=== PATIENT | male | born 1995 | race Caucasian/White ===

== ENCOUNTER → 2018-01-06 09:38 | Outpatient (CLI) | payer OTHER, SELFPAY ==
[2018-01-06 11:02] LABS: Absolute Lymphocyte Count 1.43 X10^3/ul (0.83-4.51); Absolute Neutrophil Count 1.8 X10^3/uL (2.0-7.7); Basophil# 0.02 X10^3/uL; Basophil% 0.6 % (0-1); Eosinophil# 0.16 X10^3/uL; Eosinophils% 4.4 % (0-5); Hematocrit 40.1 % (40-54); Hemoglobin 13.4 g/dl (13.0-16.5); Lymphocyte # 1.43 X10^3/ul (4.0); Lymphocyte % 39.6 % (19-41); Mean Corp Hgb Conc 33.4 g/gl (32-36); Mean Corpuscular Hgb 30.4 pg (27.0-32.0); Mean Corpuscular Volume 90.9 fL (80-94); Mean Platelet Vol. 10.2 fl (6.2-12.0); Monocyte# 0.25 X10^3/uL; Monocyte% 6.9 % (0-10); Neutrophil # 1.75 X10^3/uL (2.7-7.7); Neutrophil % 48.5 % (47-70); Platelet Count 219 K/mm3 (150-450); RBC Distribution Width CV 13.2 % (11.6-14.6); RBC Distribution Width SD 43.7 fl (35.1-43.9); Red Blood Count 4.41 M/mm3 (4.6-6.2); White Blood Count 3.6 K/mm3 (4.4-11.0)
[2018-01-06 11:03] LABS: POSITIVE COUNT NO; POSITIVE DIFFERENTIAL NO; POSITIVE MORPHOLOGY NO
[2018-01-06 11:27] LABS: ALB/GLOB Ratio 1.2 RATIO (0.9-2.4); AST(SGOT) 11 U/L (15-37); Alanine Aminotransfer ALT/SGPT 23 U/L (16-61); Albumin, Serum 4.3 g/dL (3.2-5.0); Alkaline Phosphatase 92 U/L (45-117); Anion Gap 8 (5-15); BUN 13 mg/dL (7-18); Calcium,Total 9.4 mg/dL (8.5-10.1); Chloride 106 mmol/L (98-107); Creatinine, Serum 0.87 mg/dL (0.70-1.30); EST Glomerular Filtration Rate 115 mL/min (>60); Est Glom Filt Rate - Afr Amer 139 mL/min (>60); Globulin 3.6 g/dL (2.2-4.2); Glucose 74 mg/dL (74-106); Protein, Total 7.9 g/dL (6.4-8.2); Sodium Level 144 mmol/L (136-145)
== END ==
PROVIDERS: Family Provider Family Medicine; PCP Family Medicine; Referring Provider Family Medicine; Visit Provider Family Medicine
DX: G80.1 Spastic diplegic cerebral palsy (principal)
CPT/HCPCS: 36415; 80053; 85025

== ENCOUNTER → 2018-02-14 10:35 | Outpatient (CLI) | payer OTHER, SELFPAY ==
[2018-02-14 12:03] LABS: AST(SGOT) 10 U/L (15-37); Alanine Aminotransfer ALT/SGPT 22 U/L (16-61); Albumin, Serum 4.2 g/dL (3.2-5.0); Alkaline Phosphatase 91 U/L (45-117); Bilirubin, Direct 0.15 mg/dL (0.00-0.30); Globulin 3.6 g/dL (2.2-4.2); Protein, Total 7.8 g/dL (6.4-8.2)
== END ==
PROVIDERS: Family Provider Family Medicine; PCP Family Medicine; Referring Provider Nurse Practitioner Family; Visit Provider Nurse Practitioner Family
DX: B35.3 Tinea pedis (principal); B35.1 Tinea unguium
CPT/HCPCS: 36415; 80076

== ENCOUNTER 2018-04-05 12:15 | Outpatient (RCR) | payer OTHER, SELFPAY ==
--- NOTE | 2017-06-03 11:25 | MASS.EVAL ---
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 He was referred to the [facility] facility for massotherapy evaluation with the diagnosis of cerebral palsy by Dr Baum. He reports today with the symptoms of having leg and foot pain due to his medical condition. Objective: The first treatment consisted of a one hour massage to the full body. Upon observation I found that he had high tension in his head neck and shoulder area. He had knots along the medial borders of his scapulaes. I also found that his plantar muscles were very tight that also is causing tightness in his calf muscles. His cervical through lumbar paraspinals were very tight and ropy. Assessment: The patient seemed to easily relax and was able to tolerate deep pressure when needed. I was able to achieve a moderate release overall. Plan: The plan of care was reviewed with the patient and he is to be seen monthly for a total of ten 1-hour sessions for the year 2018. Nancy Dillard LMT
--- NOTE | 2017-06-03 11:33 | MASS.EVAL_ITS ---
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 He was referred to the [facility] facility for massotherapy evaluation with the diagnosis of cerebral palsy by Dr Baum. He reports today with the symptoms of having leg and foot pain due to his medical condition. Objective: The first treatment consisted of a one hour massage to the full body. Upon observation I found that he had high tension in his head neck and shoulder area. He had knots along the medial borders of his scapulaes. I also found that his plantar muscles were very tight that also is causing tightness in his calf muscles. His cervical through lumbar paraspinals were very tight and ropy. Assessment: The patient seemed to easily relax and was able to tolerate deep pressure when needed. I was able to achieve a moderate release overall. Plan: The plan of care was reviewed with the patient and he is to be seen monthly for a total of ten 1-hour sessions for the year 2018. Nancy Dillard LMT
--- NOTE | 2018-04-05 14:41 | DS.PCM_ITS ---
Massage Therapy Discharge Summary: Initial Evaluation: 06/01/2017 Diagnosis: Cerebal Palsy No. of Visits: Date of last visit: 04/05/2018 Goals: Promoted relaxation Decreased stress This patient is being discharged from our care at the [facility]. Thank you, Blaire Garcia LMT
== END 2018-04-06 08:14 | disposition home or self-care (01) ==
LOC: MASS 12:15
PROVIDERS: Family Provider Family Medicine; PCP Family Medicine; Visit Provider Family Medicine
DX: M79.1 Myalgia (principal); G80.9 Cerebral palsy, unspecified
CPT/HCPCS: 97124

== ENCOUNTER 2019-01-26 12:30 | Outpatient (RCR) | payer OTHER, MEDICARE, SELFPAY ==
--- NOTE | 2018-12-01 11:18 | HP.PTEVAL_ITS ---
Patient's Visit Information NEO VARELA is a 23 year old M referred to Physical Therapy by MARK QUEEN with a diagnosis of Congenital quadriplegia. Date of Evaluation: 12/01/18 Physical Therapist: Esvin Julio, SERENET, OCS, CSCS - Visit Plan Frequency: 3x /Week Duration: 4-6 Weeks Plan: 3x/week for 3-6 weeks for. 1. rollout and stretch SH aggressively and hip into external rotation, ensure compliance at home. Do this each visit for 20 minutes(we are trying to avoid leg immobilizer for surgery), then spend 10 mintues working on hip abd and ext strength adn ankle strength to HEP. - Subjective Findings: Needs PT to get surgery to straighten legs better. Stretches have been happening SKC and HS stretch, piriformis stretch, butterfly stretch, long sit stretch. Does them every other day and holding for 10 seconds max. Surgery may be cutting bone at ankle and rotating foot and HS lenghtening. if they can get the hS stretched out then they can do both just at the ankle. This will save him from full leg cast. Wants to do this in a month and needs to be stretched out. Has AFOs but not in them today. Usually has them on out and about. No pain. No AD to walk today but uses wh walker typically. Falls often if he tries to go too fast. Working at [employer] and [employer]. Sleeps like a rock. Bwoing , fishing, out with friends, watch sports. - Objective Walks into PT today without AD or AFOs, mildly unsteady with adducted femurs and externally rotated feet, knees stay flexed to about 20 degrees. Walks with short steps. Tranfers I with excessive use of arms. Spine stays flexed and can get to neutral ext. Patient has spasticity in IR of hips, HS, and adductors. Atrophied calves adn ankle musculature(rhizotmoy when he was little). Has a hard time moving ankles coordination torrez and 3-/5 strength jessy vailable ROM. 0 degrees DF, 22 eversion and 10 inversion passively. PF to 30. Knee AROM L -3 to 135 in supine and R -4 to 132, no pain with OP. Hip ROM to neutral ext 15 abd R adn 10 L and 125 flexion B.Adduction is pull. Strength hip abd 3-, ext 2+, adduction 4, flexion 4-. HS 90/90 test is - 50 L and -45 R. External rotation hips is 30 B with firm end feel and 90 IR easily. - Goals Goal 1:: -30 90/90 test at HS to limit need for HS lenghtening at surgery time. Goal Time Frame: 4-6 Weeks Goal 2:: Pt I in appropriate hip abd, ext and ankle strength and HS/er stretching for HEP Goal Time Frame: 4-6 Weeks - Rehabilitation Potential Physical Therapy Diagnosis: tone in LE affecting positioning and function of LE. Rehabilitation Potential: Questionable - Anticipated Interventions Patient/Client Instruction: Educate patient on: Condition, Plan of Care For the Purpose of:: To increase ROM, To improve muscle performance and motor function Therapeutic Exercise to Include: Strength training, Flexibilty training, Passive ROM, Active ROM For the Purpose of:: To increase ROM, To improve muscle performance and motor function, To increase tolerance to activity/condition/position, To improve ability of physical actions for home/community/work/leisure Thank you for the opportunity to evaluate your patient. For Medicare and Medicare HMO plans, please review the plan of care and approve it. It will need to be FAXED BACK to us at [phone] for Medicare purposes. For Medicare only, by signing this I certify the plan of care. Please let me know if there are questions or concerns regarding this plan of care. Physician Signature: Date:
--- NOTE | 2018-12-22 12:55 | HP.PTREVAL ---
MARK QUEEN, It has been my pleasure to treat NEO VARELA over the last 9 visits for Congenital quadriplegia. Please see the progress note below for an update on the physical therapy plan of care! Subjective: Hoping to just get R ankle done now with half leg cast according to dad. instead of two full leg calves. Cj feel stretches help him walk easier and further adn dad says that his legs do better. Doing band every morning and 3x10 throughout day. Bridging , stretching adn piriformis stretch daily. Also attempting ball HS curl. Objective/Function: -20 R HS adn -25 L 90/90 test. Much improved adn measured after stretching today. hip flexion strength 4-, knee ext 4- but overflows to htese muscles when attempting abd 3 adn ext 3 B. Positioning still tends to rotate in R>L and shoe wear R medial toe is excessive. Knees collapse together with functional stadning and walking unless cued verbally in standing. OVERALL BETTER ROM HS STILL WEAK HIPS . Plan Plan: 2X/WEEK FOR 4 WEEKS LEADING UP TO SURGERY TO ENSURE MAINTENANCE OF HS LENGTH WITH HEP AND PROGRESS AGRESSIVENESS OF LE STRENGTH ENSURING APPROPRIATE GYM EX TECHNIQUE AND PROGRESSING FUNCTIONAL STRENGTH OF HIPS AND KNEES WITH FEMUR IN NEUTRAL POSITION. Goals Goal 1:: -30 90/90 test at HS to limit need for HS lenghtening at surgery time. Goal Time Frame: 4-6 Weeks Goal Progress: Goal Met Goal 2:: Pt I in appropriate hip abd, ext and ankle strength and HS/er stretching for HEP Goal Time Frame: 4-6 Weeks Goal Progress: Goal Met Goal 3:: pt progress to functional strength LE I Goal Time Frame: 2-4 Weeks Goal Progress: new goal Goal 4:: Maintain -30 HS length on 90/90 test while stretching on his own. Goal Time Frame: 2-4 Weeks Goal Progress: NEW GOAL Goal 5:: stand with knees apart without VC needed. Goal Time Frame: 2-4 Weeks Goal Progress: New GOAL Anticipated Interventions Patient/Client Instruction: Educate patient on: Condition, Plan of Care For the Purpose of:: To increase ROM, To improve muscle performance and motor function Therapeutic Exercise to Include: Strength training, Flexibilty training, Passive ROM, Active ROM For the Purpose of:: To increase ROM, To improve muscle performance and motor function, To increase tolerance to activity/condition/position, To improve ability of physical actions for home/community/work/leisure Please do not hesitate to contact me at [phone] by phone or if you have questions or concerns regarding this new plan of care! Sincerely, Esvin Julio, DPT, OCS, CSCS
--- NOTE | 2019-01-26 13:25 | HP.PTDCSUM ---
HP - PT D/C Summary It has been my pleasure to treat NEO VARELA under orders from MARK QUEEN, for the diagnosis of Congenital quadriplegia for a total of 18 visit(s). Discharge Date: 01/26/19 Please see the following information for a summary of their discharge status. - Subjective Subjective: Presents with mom. Doing well and has been stretching. Sore from the machines. Having surgery osteotomy on Tuesday to R leg and should be discharged until sent back as he will be NWB - Overall Improvement % Improvement: 25 - Objective Objective/Function: -25 R 90/90 test adn -30 L 90/90 test. lag in B LSR. hip abd and ext still very weak and hard to hold femur in position. Walking with IR and add at both femurs and feet flat and R>L rotated out. - Goals Goal 1:: -30 90/90 test at HS to limit need for HS lenghtening at surgery time. Goal Progress: Goal Met Goal 2:: Pt I in appropriate hip abd, ext and ankle strength and HS/er stretching for HEP Goal Progress: Goal Met Goal 3:: pt progress to functional strength LE I Goal Progress: miles have surgery Goal 4:: Maintain -30 HS length on 90/90 test while stretching on his own. Goal Progress: near met Goal 5:: stand with knees apart without VC needed. Goal Progress: Not Progressing - Plan Plan: d/c for surgery. - D/C Information Discharge Comments: d/c as patient will have surgery. If there are questions or concerns regarding this patient's physical therapy, please feel free to call me at [phone]. Thank you for the referral of this patient. Sincerely, Esvin Julio, DPT, OCS, CSCS
== END 2019-01-26 19:00 | disposition home or self-care (01) ==
LOC: PT 12:30
PROVIDERS: Family Provider Family Medicine; PCP Family Medicine
DX: G80.8 Other cerebral palsy (principal); M21.6X9 Other acquired deformities of unspecified foot
CPT/HCPCS: 97110; 97140; 97162; 97530

== ENCOUNTER 2019-03-20 12:30 | Outpatient (RCR) | payer OTHER, SELFPAY ==
[2017-05-25 17:28] VITALS: BMI 21.7
--- NOTE | 2018-05-15 12:51 | MASS.EVAL ---
Massage Therapy Evaluation: Initial Evaluation Date: 05/10/2018 SUBJECTIVE: Cj is a 22 year old male who was referred to the [facility] facility for a massotherapy evaluation by Dr Harry with the diagnosis of cerebral palsy. Cj presents today with the symptoms of tension and pain in his neck and shoulders. He states that he also has a lot of leg tension and pain in both feet. OBJECTIVE: Upon observation and palpation I found Cj to have high muscle tension with tenderness and myofascial restrictions in his sub occipitals, levator scapulae, trapezius, rhomboids, scalenes, and thoracic paraspinals. His QL?s, lumbar paraspinals, glute medius and minimus,as well as his plantar muscles all were very tight with fascial restrictions, tender points and trigger points. The first treatment consisted of a one hour massage to his full body with myofascial release, muscle stripping, trigger point compression techniques, and cervical manual traction. ASSESSMENT: I feel that Cj is a good candidate for massotherapy at this time. He had a favorable response to the first treatment with reduction in his muscle aches, pain and tension. He also had improvement in his cervical flexibility and low back flexibility. PLAN: The plan of care was reviewed with the patient. The patient is to be seen on an as needed basis for a total of ten sessions with the recommendation of once every month for a one hour treatment.
== END 2019-03-20 19:00 | disposition home or self-care (01) ==
LOC: MASS 12:30
PROVIDERS: Family Provider Family Medicine; PCP Family Medicine; Referring Provider Family Medicine; Visit Provider Family Medicine
DX: M79.10 Myalgia, unspecified site (principal); G80.9 Cerebral palsy, unspecified
CPT/HCPCS: 97124

== ENCOUNTER 2019-05-08 14:00 | Outpatient (RCR) | payer OTHER, SELFPAY ==
--- NOTE | 2019-03-23 08:26 | HP.PTEVAL ---
Patient's Visit Information NEO VARELA is a 23 year old M referred to Physical Therapy by MARK QUEEN with a diagnosis of ER of foot, shortened achilles, S/P R foot recon, achilles lengthening. Date of Evaluation: 03/22/19 Physical Therapist: Isac Brush DPT - Visit Plan Frequency: 2x /Week Duration: 4-6 Weeks Plan: Start with achilles, HS, and adductor stretching. Add in ankle ROM both PROM and AROM. Progress to standing and walking once boot has been removed and cleared by physician. - Subjective Findings: Pt. is here today for his initial evaluation S/P R foot reconstructon and tendon lengthening procedure. Pt. is 4 weeks out of surgery. PMH: external rotation of foot, short achilles, congenital quadiplegia. Pt. reports no pain currently. He is doing some active ankle ROM and some standing in his boot. Pt. reports not walking much and is to refrain from increased walking currently. Pt. came today with sister who has been looking after him. 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 Pt. was previously walking without AD in household with furniture for stability and walker for longer distances. Pt. reports no difficulty getting out of bed. Pt. does have mild soreness with standing. No N/T. Pt. is in CAM boot and is to stay in until seeing doctor later this month. pt. is hopeful to get back to all walking, work and gym exercises without limitations. - Pain R foot Pain Intensity (Out of 10): 1 Pain Intensity Range: 0, 2 - Objective POSTURE: Pt. has flexed posture in sitting. Pt. is able to stand with FWW. Pt. had slight knee flexion during stance, slight plantar flexion as well. PALPATION: pt. has normal healing incison on foot. Pt. has no sighs of infection. NEURO: as expected. ROM: L foot: decreased DF 0deg. PF 28deg, INV/EVR 2-3 deg/ea. R foot: DF 6deg, PF 34deg. INV: 3deg EVR 6deg. HS length RLE- 48deg, LLE- 44deg. Adductor length- RLE 28deg, LLE- 30deg. MMT: Pt. has general 4/5 strength throughout BLEs. Pt. has fair core strength. STANDING: pt. completes txs independently. Pt. is able to stand with good posture. WALKING: Pt. is able to walk ~20 feet with FWW with SBA. Pt. had good posture to start, but degressed to more flexed posture. - Goals Goal 1:: Pt. to be I with HEP. Goal Time Frame: 4-6 Weeks Goal 2:: Pt. to have increased adductor, achilles, HS length inreased by 25% or RLE. Goal Time Frame: 4-6 Weeks Goal 3:: Pt. to stand with improved overall posture with full flat foot positoning. Goal Time Frame: 4-6 Weeks Goal 4:: Pt. to walk houshold distances with FWW with improved, safe gait pattern. Goal Time Frame: 4-6 Weeks Goal 5:: Pt. to resume gym exercises without limitations. Goal Time Frame: 4-6 Weeks - Rehabilitation Potential Physical Therapy Diagnosis: Pt. is S/P R foot recon, achilles tendon lengthening surgery. Pt. has subsequent hypombility, but improved. Pt. would benefit from achilles, adductor and HS stretching progressing to walking/standing. Rehabilitation Potential: Excellent - Anticipated Interventions Patient/Client Instruction: Educate patient on: Condition, Plan of Care, Risk Factors, Benefits of Fitness Program For the Purpose of:: To foster healthy habits, To improve decision making, To facilitate caregiver knowledge, To improve self management, To prevent re-injury, To improve ability to perform tasks related to life management, To improve tolerance to ADL's Therapeutic Exercise to Include: Strength training, Power training, Balance training, Postural training, Flexibilty training, Gait and locomotor training, Passive ROM, Active ROM For the Purpose of:: To decrease pain, To decrease swelling/inflammation, To increase ROM, To improve nutrient delivery to tissue, To increase oxygenation perfusion, To improve muscle performance and motor function, To improve ability to perform ADL's, To improve gait and locomotor functions, To decrease soft tissue restriction Manual Therapy Techniques to Include: Mobilization, Passive ROM, Soft tissue mobilization For the Purpose of:: To decrease pain, To increase ROM, To improve nutrient delivery to tissue, To increase oxygenation perfusion, To improve muscle performance and motor function Thank you for the opportunity to evaluate your patient. For Medicare and Medicare HMO plans, please review the plan of care and approve it. It will need to be FAXED BACK to us at [phone] for Medicare purposes. For Medicare only, by signing this I certify the plan of care. Please let me know if there are questions or concerns regarding this plan of care. Physician Signature: Date:
--- NOTE | 2019-04-24 14:46 | HP.PTREVAL_ITS ---
MARK QUEEN, It has been my pleasure to treat NEO VARELA over the last 8 visits for ER of foot, shortened achilles, S/P R foot recon, achilles lengthening. Please see the progress note below for an update on the physical therapy plan of care! Subjective: Pt. reports I am going to start working at [employer] on Tuesday. He reports doing well overall with increased standing tolerance Objective/Function: Pt. did well this date. Pt. is back to walking with new AFO on RLE, no redness noted this date. ROM: increased ROM of R ankle DF to 20deg. Hip abduction 45deg (tight end feel), HS length 60deg in supine (tight end feel noted). MMT: Pt. has 4/5 strength throughotu BLEs, except 3/5 hip abd and ER. Plan Plan: Start with achilles, HS, and adductor stretching. Add in ankle ROM both PROM and AROM. Add in strengthening of BLEs progressing to gym exercises as tolerated. Focus on proper techniques with knee positoning. Goals Goal 1:: Pt. to be I with HEP. Goal Time Frame: 4-6 Weeks Goal Progress: Progressing Goal 2:: Pt. to have increased adductor, achilles, HS length inreased by 25% or RLE. Goal Time Frame: 4-6 Weeks Goal Progress: Progressing Goal 3:: Pt. to stand with improved overall posture with full flat foot positoning. Goal Time Frame: 4-6 Weeks Goal Progress: Progressing Goal 4:: Pt. to walk houshold distances with FWW with improved, safe gait pattern. Goal Time Frame: 4-6 Weeks Goal Progress: Goal Met Goal 5:: Pt. to resume gym exercises without limitations. Goal Time Frame: 4-6 Weeks Goal Progress: Progressing Anticipated Interventions Patient/Client Instruction: Educate patient on: Condition, Plan of Care, Risk Factors, Benefits of Fitness Program For the Purpose of:: To foster healthy habits, To improve decision making, To facilitate caregiver knowledge, To improve self management, To prevent re- injury, To improve ability to perform tasks related to life management, To improve tolerance to ADL's Therapeutic Exercise to Include: Strength training, Power training, Balance training, Postural training, Flexibilty training, Gait and locomotor training, Passive ROM, Active ROM For the Purpose of:: To decrease pain, To decrease swelling/inflammation, To increase ROM, To improve nutrient delivery to tissue, To increase oxygenation perfusion, To improve muscle performance and motor function, To improve ability to perform ADL's, To improve gait and locomotor functions, To decrease soft tissue restriction Manual Therapy Techniques to Include: Mobilization, Passive ROM, Soft tissue mobilization For the Purpose of:: To decrease pain, To increase ROM, To improve nutrient delivery to tissue, To increase oxygenation perfusion, To improve muscle performance and motor function Please do not hesitate to contact me at [phone] by phone or if you have questions or concerns regarding this new plan of care! Sincerely, Isac Brush DPT
== END 2019-05-08 19:00 | disposition home or self-care (01) ==
LOC: PT 14:00
PROVIDERS: Family Provider Family Medicine; PCP Family Medicine
DX: M21.6X9 Other acquired deformities of unspecified foot (principal); M67.00 Short Achilles tendon (acquired), unspecified ankle; G80.8 Other cerebral palsy
CPT/HCPCS: 97110; 97161; 97164

== ENCOUNTER → 2019-10-01 09:23 | Outpatient (CLI) | payer OTHER, SELFPAY ==
[2019-07-11 10:54] VITALS: BMI 21.7
[2019-10-01 10:15] LABS: Absolute Lymphocyte Count 1.44 X10^3/uL (0.83-4.51); Basophil# 0.01 X10^3/uL; Basophil% 0.3 % (0-1); Eosinophil# 0.04 X10^3/uL; Eosinophils% 1.1 % (0-5); Hematocrit 40.4 % (40-54); Hemoglobin 13.3 g/dL (13.0-16.5); Lymphocyte # 1.44 X10^3/ul (4.0); Lymphocyte % 38.1 % (19-41); Mean Corp Hgb Conc 32.9 g/dL (32-36); Mean Corpuscular Hgb 29.6 pg (27.0-32.0); Mean Platelet Vol. 10.2 fl (6.2-12.0); Monocyte# 0.27 X10^3/uL; Monocyte% 7.1 % (0-10); NRBC Flagged by Analyzer 0 % (0-5); Neutrophil # 2.01 X10^3/uL (2.7-7.7); Neutrophil % 53.1 % (47-70); Platelet Count 237 K/mm3 (150-450); RBC Distribution Width CV 12.4 % (11.6-14.6); RBC Distribution Width SD 40.7 fl (35.1-43.9); Red Blood Count 4.49 M/mm3 (4.6-6.2); White Blood Count 3.8 K/mm3 (4.4-11.0)
[2019-10-01 10:45] LABS: ALB/GLOB Ratio 1.2 RATIO (0.9-2.4); AST(SGOT) 10 U/L (15-37); Alanine Aminotransfer ALT/SGPT 21 U/L (16-61); Albumin, Serum 4.4 g/dL (3.2-5.0); Alkaline Phosphatase 90 U/L (45-117); Anion Gap 4 (5-15); BUN 16 mg/dL (7-18); BUN/Creat Ratio 18.8 RATIO (10-20); Calcium,Total 9.5 mg/dL (8.5-10.1); Chloride 108 mmol/L (98-107); Creatinine, Serum 0.85 mg/dL (0.70-1.30); EST Glomerular Filtration Rate 116 mL/min (>60); Est Glom Filt Rate - Afr Amer 140 mL/min (>60); Globulin 3.8 g/dL (2.2-4.2); Glucose 94 mg/dL (74-106); Lipase 149 U/L (73-393); Potassium 3.9 mmol/L (3.5-5.1); Protein, Total 8.2 g/dL (6.4-8.2); Sodium Level 141 mmol/L (136-145)
== END ==
PROVIDERS: PCP Family Medicine; Referring Provider Family Medicine; Visit Provider Family Medicine
DX: R10.12 Left upper quadrant pain (principal); D72.819 Decreased white blood cell count, unspecified
CPT/HCPCS: 36415; 80053; 81001; 83690; 85025; 87086

== ENCOUNTER → 2019-10-02 11:57 | Outpatient (CLI) | payer OTHER, SELFPAY ==
[2019-07-11 10:54] VITALS: BMI 21.7
[2019-10-02 12:03] LABS: Bacteria 0 SEEN /hpf (None Seen); Red Blood Cells-Urine 0 SEEN /hpf (0-5); Squamous Epithelial Cells - UA 0 SEEN /hpf (0-5); White Blood Cells 0 SEEN /hpf (0-5)
[2019-10-02 12:31] LABS: Color, Urine Yellow (Yellow); Glucose, Dipstick Normal (Normal); Ketone-Dipstick Negative (Negative); Leukocyte Esterase-Dipstick Negative /ul (Negative); Nitrite-Dipstick Negative (Negative); Occult Blood-Urine Negative /ul (Negative); Protein-Dipstick Negative (Negative); Specific Gravity, Urine 1.015 (1.002-1.030); Urine Bilirubin Dipstick Negative (Negative); Urine Clarity Clear (Clear); Urine Urobilinogen Normal (Normal)
[2019-10-02 12:36] LABS: Mucous, Urine 1+ /hpf (<or=2+)
== END ==
PROVIDERS: PCP Family Medicine; Referring Provider Family Medicine; Visit Provider Family Medicine
DX: R10.12 Left upper quadrant pain (principal)
CPT/HCPCS: 81001; 87086

== ENCOUNTER → 2019-10-04 11:05 | Outpatient (CLI) | payer OTHER, SELFPAY ==
[2019-10-04 10:20] VITALS: BMI 22.9
== END ==
PROVIDERS: PCP Family Medicine; Referring Provider Physician Assistant; Visit Provider Physician Assistant
DX: Z20.828 Contact with and (suspected) exposure to other viral communicable diseases (principal); R68.83 Chills (without fever); R05 Cough; R11.0 Nausea
CPT/HCPCS: 87635; G2023; U0003

== ENCOUNTER → 2019-11-01 13:08 | Outpatient (CLI) | payer OTHER, SELFPAY ==
[2019-10-04 11:48] VITALS: BMI 21.7
[2019-11-01 15:05] LABS: Absolute Lymphocyte Count 2.16 X10^3/uL (0.83-4.51); Absolute Neutrophil Count 2.5 X10^3/uL (2.0-7.7); Basophil# 0.02 X10^3/uL; Basophil% 0.4 % (0-1); Eosinophil# 0.13 X10^3/uL; Eosinophils% 2.5 % (0-5); Hematocrit 40.3 % (40-54); Hemoglobin 13.1 g/dL (13.0-16.5); Lymphocyte # 2.16 X10^3/ul (4.0); Lymphocyte % 42.4 % (19-41); Mean Corp Hgb Conc 32.5 g/dL (32-36); Mean Corpuscular Hgb 29.6 pg (27.0-32.0); Mean Platelet Vol. 10.6 fl (6.2-12.0); Monocyte# 0.27 X10^3/uL; Monocyte% 5.3 % (0-10); NRBC Flagged by Analyzer 0 % (0-5); Neutrophil # 2.51 X10^3/uL (2.7-7.7); Neutrophil % 49.2 % (47-70); Platelet Count 265 K/mm3 (150-450); RBC Distribution Width CV 12.7 % (11.6-14.6); RBC Distribution Width SD 41.6 fl (35.1-43.9); Red Blood Count 4.43 M/mm3 (4.6-6.2); White Blood Count 5.1 K/mm3 (4.4-11.0)
[2019-11-01 15:25] LABS: ALB/GLOB Ratio 1.1 RATIO (0.9-2.4); AST(SGOT) 14 U/L (15-37); Alanine Aminotransfer ALT/SGPT 24 U/L (16-61); Albumin, Serum 4.2 g/dL (3.2-5.0); Alkaline Phosphatase 91 U/L (45-117); Anion Gap 3 (5-15); BUN 18 mg/dL (7-18); BUN/Creat Ratio 21.6 RATIO (10-20); Calcium,Total 9.6 mg/dL (8.5-10.1); Chloride 105 mmol/L (98-107); Creatinine, Serum 0.83 mg/dL (0.70-1.30); EST Glomerular Filtration Rate 118 mL/min (>60); Est Glom Filt Rate - Afr Amer 143 mL/min (>60); Globulin 3.9 g/dL (2.2-4.2); Glucose 114 mg/dL (74-106); Lipase 153 U/L (73-393); Potassium 3.8 mmol/L (3.5-5.1); Protein, Total 8.1 g/dL (6.4-8.2); Sodium Level 139 mmol/L (136-145)
== END ==
PROVIDERS: PCP Family Medicine; Referring Provider Family Medicine; Visit Provider Family Medicine
DX: D72.819 Decreased white blood cell count, unspecified (principal); R10.12 Left upper quadrant pain
CPT/HCPCS: 36415; 80053; 83690; 85025

== ENCOUNTER 2020-04-01 10:45 | Outpatient (RCR) | payer OTHER, SELFPAY ==
[2017-05-25 17:28] VITALS: BMI 21.7
--- NOTE | 2019-04-26 14:25 | MASS.EVAL ---
Massage Therapy Evaluation: Initial Evaluation Date: 04/26/2019 /Age: 0609/22/1995, 23 Diagnosis: CP, muscle spasms Goals: Decrease muscle pain and tension Plan: To be seen one time per month or PRN for a total of 10 treatments
--- NOTE | 2020-04-02 12:27 | DS.PCM_ITS ---
Massage Therapy Discharge Summary: Discharge Date: 04/02/2020 Estuardo was seen for a massotherapy evaluation on 04/26/2019 with the diagnosis of muscle pain and cerebral palsy. He was treated with eight sessions of massage therapy consisting of deep pressure soft tissue techniques, myofascial release and trigger point compression to his cervical, thoracic, lower back, lower extremities, feet and hips. Estuardo responded well to the therapy by reporting decreased tension and pain throughout his neck, shoulders, lower back and hips. His goals for therapy were met throughout the treatment sessions. At this time this patient is being discharged from our care at [facility] facility.
== END 2020-04-01 19:00 | disposition home or self-care (01) ==
LOC: MASS 10:45
PROVIDERS: Family Provider Family Medicine; PCP Family Medicine; Referring Provider Family Medicine; Visit Provider Family Medicine
DX: M79.10 Myalgia, unspecified site (principal); G80.9 Cerebral palsy, unspecified
CPT/HCPCS: 97124

== ENCOUNTER 2020-08-25 12:00 | Outpatient (RCR) | payer OTHER, SELFPAY ==
[2019-11-20 10:12] VITALS: BMI 21.7
--- NOTE | 2020-01-17 11:14 | HP.PTEVAL ---
Patient's Visit Information NEO VARELA is a 24 year old M referred to Physical Therapy by MARK QUEEN with a diagnosis of L foot surgery, tendon lengthening. Date of Evaluation: 01/15/20 Physical Therapist: Isac Brush DPT - Visit Plan Frequency: 2x /Week Duration: 4-6 Weeks Plan: Start with LLE stretching, hip, glute, quad strengthening. Once able to apply wt. through his LLE start initiating walking, and functional strengthening. Educate family on HEP for increased carry over. - Subjective Pt. is here today for his initial evaluation with diagnosis of of L foot surgery, tendon lengthening. Pt. reports having surgery ~6 weeks ago. Pt. was removed from cast ~ 1 week ago and is now in a CAM boot, but had to remove the boot as it was causing some redness along his navicular bone. Pt. is NWBing for another 10 days. Pt. denies N/T. He has been wearing his night splint as prescribed. Pt. reports no pain. Pt. is hopeful to get back to walking and working. Pt. does have a brace on his R leg, but has not recieved his L AFO at this point in time. 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 Pt. has been doing his exercises as prescribed. Pt. is hopeful to get back to all recreational and work activtiies without limitations. - Pain L foot Pain Intensity (Out of 10): 0 Pain Intensity Range: 0 - Objective POSTURE: Pt. has B knee valgus, he does have improved positioning. He still has some navicular drop bilaterally. PALPATION: Pt has normal healing incisions, no signs of infection. Pt. does have some redness at his navicular bone on his L leg, but per father this has been there since wearing the CAM boot, but is no longer wearing. NEURO: hypertone noted, 3+ patellar tendon bilaterally. ROM: LLE- ankle- DF- 25deg, PF 20deg, INV/EVR 5deg each direction. knee- 0-10-125deg. Tight HS and hip flexors noted bilaterally. hip- flexion- 120deg, ext- 0deg, abd 28deg. Pt. had marked tone with all mvoements of BLEs. MMT: LLE- ankle- DF 4/5, PF 4-/5; knee- ext 4/5, flexion 4-/5; hip- flexion 4-/5, abd 3-/5, ext- 4-/5. Core strength- fair-. GAIT: not measured today due to NWBing. - Goals Goal 1:: LTG: pt. to be I with HEP for LE strengthening and ROM. Goal Time Frame: 4-6 Weeks Goal 2:: STG: Pt. to initiate WBing on LLE and be able to walk I house hold distances without increase in symptoms. Goal Time Frame: 2-4 Weeks Goal 3:: LTG: Pt. to be I with gait for unlimited distances with proper WBing on LLE without increase in issues. Goal Time Frame: 4-6 Weeks Goal 4:: LTG: Pt. to resume all work related activities without increase in symptoms. Goal Time Frame: 4-6 Weeks Goal 5:: LTG: Pt. to maintain 25deg of L ankle DF. Goal Time Frame: 4-6 Weeks - Rehabilitation Potential Physical Therapy Diagnosis: Pt. has signs and symptoms consistent with L foot reconstruction, L foot surgery. Pt. is hypomobility, but improved, has difficulty walking and overall LE weakness. Pt. would benefit from PT to work on ROM, strengthening, gait with walker in order to progress functional gait/standing and progress back to work related acivities. Rehabilitation Potential: Excellent - Anticipated Interventions Patient/Client Instruction: Educate patient on: Condition, Plan of Care, Risk Factors, Benefits of Fitness Program For the Purpose of:: To facilitate caregiver knowledge, To improve self management, To prevent re-injury, To improve ability to perform tasks related to life management, To improve tolerance to ADL's Thank you for the opportunity to evaluate your patient. For Medicare and Medicare HMO plans, please review the plan of care and approve it. It will need to be FAXED BACK to us at [phone] for Medicare purposes. For Medicare only, by signing this I certify the plan of care. Please let me know if there are questions or concerns regarding this plan of care. Physician Signature: Date:
--- NOTE | 2020-02-29 14:49 | HP.PTREVAL ---
MARK QUEEN, It has been my pleasure to treat NEO VARELA over the last 12 visits for L foot surgery, tendon lengthening. Please see the progress note below for an update on the physical therapy plan of care! Subjective: No pain reported today. Pt. reports walking some at home, but not as much as I should. Objective/Function: Pt. did well with PT this date. Pt. is progressing with strength. He is able to ambulate with FWW for household distances. He is still weak throughout his BLEs, especially with hip abd, ER, quads, HS and glutes. MMT: knee ext 3+, HS 3+; hip abd 3-, hip ext 3+, hip ER 3+. GAIT: Pt. continues to have a crouched pattern, but does improve with VC/TCIng to increase TKE and reduce valgus positioning of his knees. Plan Plan: I would recommend that he continue with PT with focus on BLE strengthening, focusing on quad, glute strengthening to increase posture posture and improved control with gait. Goals Goal 1:: LTG: pt. to be I with HEP for LE strengthening and ROM. Goal Time Frame: 4-6 Weeks Goal Progress: Progressing Goal 2:: STG: Pt. to initiate WBing on LLE and be able to walk I house hold distances without increase in symptoms. Goal Time Frame: 2-4 Weeks Goal Progress: Progressing Goal 3:: LTG: Pt. to be I with gait for unlimited distances with proper WBing on LLE without increase in issues. Goal Time Frame: 4-6 Weeks Goal Progress: Progressing Goal 4:: LTG: Pt. to resume all work related activities without increase in symptoms. Goal Time Frame: 4-6 Weeks Goal Progress: Progressing Goal 5:: LTG: Pt. to maintain 25deg of L ankle DF. Goal Time Frame: 4-6 Weeks Goal Progress: Goal Met Anticipated Interventions Patient/Client Instruction: Educate patient on: Condition, Plan of Care, Risk Factors, Benefits of Fitness Program For the Purpose of:: To facilitate caregiver knowledge, To improve self management, To prevent re-injury, To improve ability to perform tasks related to life management, To improve tolerance to ADL's Please do not hesitate to contact me at [phone] by phone or if you have questions or concerns regarding this new plan of care! Sincerely, SERENE ChapmanT
--- NOTE | 2020-04-29 09:39 | HP.PTREVAL_ITS ---
MARK QUEEN, It has been my pleasure to treat NEO VARELA over the last 17 visits for L foot surgery, tendon lengthening. Please see the progress note below for an update on the physical therapy plan of care! Subjective: Pt. reports no new issues. He arrives walking with his K walker. He continues to require increased VCIng to increase his erect posture and to focus on increased WBing through his heels. No pain noted. Pt. reports being HEP compliant. Objective/Function: Pt. has improved strength throughout BLEs. RLE- hip- flexion 4/5, abd 3/5, ER 3/5; knee- ext 4+/5, flexion 4/5. LLE-hip- flexion 4/5, abd 3/5, ER 3/5; knee- ext 4+/5, flexion 4/5. Pt. has imrpoved posture with stance with walking. He has improved WBing through his full foot and decreased sway back, crouched posture. When he starts to walk this changes. He has increased difficulty with hip IR during full gait cycle and tends to have K walker very p osterior resulting in increased retro lean and crouched posture. He has improvement with increased VCing, but struggles to maintain throughout gait. He is able to walk 1000'+ but VCing to increase posture and foot placement/hip ER during stance phase of gait. He is back to work which will help him be more active as well. Plan Plan: I plan to continue with adelso with focus on hip, quad, and core strengthening and gaitr progression working on increased erect posture, better use/posture with walker. Goals Goal 1:: LTG: pt. to be I with HEP for LE strengthening and ROM. Goal Time Frame: 4-6 Weeks Goal Progress: Progressing Goal 2:: STG: Pt. to initiate WBing on LLE and be able to walk I house hold distances without increase in symptoms. Goal Time Frame: 2-4 Weeks Goal Progress: Progressing Goal 3:: LTG: Pt. to be I with gait for unlimited distances with proper WBing on LLE without increase in issues. Goal Time Frame: 4-6 Weeks Goal Progress: Progressing Goal 4:: LTG: Pt. to resume all work related activities without increase in symptoms. Goal Time Frame: 4-6 Weeks Goal Progress: Progressing Goal 5:: LTG: Pt. to maintain 25deg of L ankle DF. Goal Time Frame: 4-6 Weeks Goal Progress: Goal Met Anticipated Interventions Patient/Client Instruction: Educate patient on: Condition, Plan of Care, Risk Factors, Benefits of Fitness Program For the Purpose of:: To facilitate caregiver knowledge, To improve self management, To prevent re-injury, To improve ability to perform tasks related to life management, To improve tolerance to ADL's Please do not hesitate to contact me at [phone] by phone or if you have questions or concerns regarding this new plan of care! Sincerely, SERENE ChapmanT
--- NOTE | 2020-07-07 12:02 | HP.PTREVAL ---
MARK QUEEN, It has been my pleasure to treat NEO VARELA over the last 30 visits for L foot surgery, tendon lengthening. Please see the progress note below for an update on the physical therapy plan of care! Subjective: Pt. reports overall walking more at home. Pt. reports being HEP compliant with exercises, but has not been to gym due to COVID. Objective/Function: Pt. is progressing, but still requires VCing for proper erector posture. Pt. contines to have increasd knee valgus and hip IR during stance phase. Improves with increased use of UEs on walker. Erect ppsture improves with proper use of AD. Overall strength has improved, weakest at hip abd 3/5, abd hip ER 3/5. Plan Plan: Cont. with POC. Cont. to focus on gait progression, hip strengthening. Cue for gait with AD to increase erect posture and knee/foot positoning. Goals Goal 1:: LTG: pt. to be I with HEP for LE strengthening and ROM. Goal Time Frame: 4-6 Weeks Goal Progress: Progressing Goal 2:: STG: Pt. to initiate WBing on LLE and be able to walk I house hold distances without increase in symptoms. Goal Time Frame: 2-4 Weeks Goal Progress: Goal Met Goal 3:: LTG: Pt. to be I with gait for unlimited distances with proper WBing on LLE without increase in issues. Goal Time Frame: 4-6 Weeks Goal Progress: Progressing Goal 4:: LTG: Pt. to resume all work related activities without increase in symptoms. Goal Time Frame: 4-6 Weeks Goal Progress: Progressing Goal 5:: LTG: Pt. to maintain 25deg of L ankle DF. Goal Time Frame: 4-6 Weeks Goal Progress: Goal Met Goal 6:: LTG: Pt. to ambulate with increased erect posture and improved hip/knee alignment. Goal Time Frame: 4-6 Weeks Goal Progress: Progressing Anticipated Interventions Patient/Client Instruction: Educate patient on: Condition, Plan of Care, Risk Factors, Benefits of Fitness Program For the Purpose of:: To facilitate caregiver knowledge, To improve self management, To prevent re-injury, To improve ability to perform tasks related to life management, To improve tolerance to ADL's Please do not hesitate to contact me at [phone] by phone or if you have questions or concerns regarding this new plan of care! Sincerely, SERENE ChapmanT
--- NOTE | 2020-08-07 16:17 | HP.PTREVAL ---
MARK QUEEN, It has been my pleasure to treat NEO VARELA over the last 40 visits for L foot surgery, tendon lengthening. Please see the progress note below for an update on the physical therapy plan of care! Subjective: Pt. stated he is doing well today and has no pain, but did state that he feels sore after he sees PT. No new symptoms today. Objective/Function: Focused on gait training today without the patients AD as well as reassessed general muscle strength and ROM. Pt. seems to be progressing well and working on getting stronger. ROM: L ext -14 deg R ext -16 deg, B flex 124 deg, hip ext ~10 deg. MMT: hip flex 3/5, hip ext 3+/5, knee ext 5/5, knee flex 5/5, shoulder flex 5/5, shoulder abduction 5/5, shoulder extension 5/5 Plan Plan: Continue with POC. Continue to focus on gait progression and hip strengthening. Cueing done for gait with and without AD to increase erect posture and knee and foot positoning. Goals Goal 1:: LTG: pt. to be I with HEP for LE strengthening and ROM. Goal Time Frame: 4-6 Weeks Goal Progress: Goal Met Goal 2:: STG: Pt. to initiate WBing on LLE and be able to walk I house hold distances without increase in symptoms. Goal Time Frame: 2-4 Weeks Goal Progress: Goal Met Goal 3:: LTG: Pt. to be I with gait for unlimited distances with proper WBing on LLE without increase in issues. Goal Time Frame: 4-6 Weeks Goal Progress: Progressing Goal 4:: LTG: Pt. to resume all work related activities without increase in symptoms. Goal Time Frame: 4-6 Weeks Goal Progress: Goal Met Goal 5:: LTG: Pt. to maintain 25deg of L ankle DF. Goal Time Frame: 4-6 Weeks Goal Progress: Goal Met Goal 6:: LTG: Pt. to ambulate with increased erect posture and improved hip/knee alignment. Goal Time Frame: 4-6 Weeks Goal Progress: Progressing Anticipated Interventions Patient/Client Instruction: Educate patient on: Condition, Plan of Care, Risk Factors, Benefits of Fitness Program For the Purpose of:: To facilitate caregiver knowledge, To improve self management, To prevent re-injury, To improve ability to perform tasks related to life management, To improve tolerance to ADL's Please do not hesitate to contact me at [phone] by phone or if you have questions or concerns regarding this new plan of care! Sincerely, Isac Brush, SERENET
== END 2020-08-25 19:00 | disposition home or self-care (01) ==
LOC: PT 12:00
PROVIDERS: PCP Family Medicine
DX: M21.6X9 Other acquired deformities of unspecified foot (principal); M67.02 Short Achilles tendon (acquired), left ankle; G80.8 Other cerebral palsy
CPT/HCPCS: 97110; 97116; 97161; 97164; 97530

== ENCOUNTER 2020-09-04 09:15 | Outpatient (RCR) | payer OTHER, SELFPAY ==
[2019-11-20 10:12] VITALS: BMI 21.7
--- NOTE | 2020-04-17 15:35 | MASS.EVAL ---
Massage Therapy Evaluation: Initial Evaluation Date: 04/17/20 /Age: 0609/22/1995, 24 Diagnosis: Spastic Diplegic Cerebral Palsy Goals: Improve flexibility Relaxation Assessment: Cj is a good candidate for massage at this time. We have had success treating his symptoms in the past. Plan: To be seen one time per month or PRN for a total of 10 one hour sessions.
--- NOTE | 2021-03-23 17:28 | DS.PCM_ITS ---
Massage Therapy Discharge Summary: Initial Evaluation Date: 04/17/20 Diagnosis: Cerebral Palsy No. of Visits: 7 Date of last visit: 09/04/20 This patient is being discharged from our care at the [facility]. Thank you, Blaire Garcia LMT
== END 2020-09-04 19:00 | disposition home or self-care (01) ==
LOC: MASS 09:15
PROVIDERS: PCP Family Medicine; Referring Provider Family Medicine; Visit Provider Family Medicine
DX: G80.1 Spastic diplegic cerebral palsy (principal)
CPT/HCPCS: 97124

== ENCOUNTER → 2020-09-25 09:44 | Outpatient (CLI) | payer OTHER, SELFPAY ==
[2019-11-20 10:12] VITALS: BMI 21.7
[2020-09-25 10:10] LABS: Bacteria 0 SEEN /hpf (None Seen); Red Blood Cells-Urine 0 SEEN /hpf (0-5); Squamous Epithelial Cells - UA 0 SEEN /hpf (0-5)
[2020-09-25 12:19] LABS: Absolute Lymphocyte Count 1.58 X10^3/uL (0.83-4.51); Absolute Neutrophil Count 1.9 X10^3/uL (2.0-7.7); Basophil# 0.03 X10^3/uL; Basophil% 0.8 % (0-1); Eosinophil# 0.16 X10^3/uL; Eosinophils% 4.1 % (0-5); Hematocrit 40.9 % (40-54); Hemoglobin 13.4 g/dL (13.0-16.5); Lymphocyte # 1.58 X10^3/ul (0.83-4.51); Lymphocyte % 40.5 % (19-41); Mean Corp Hgb Conc 32.8 g/dL (32-36); Mean Corpuscular Hgb 29.6 pg (27.0-32.0); Mean Corpuscular Volume 90.5 fL (80-94); Mean Platelet Vol. 10.4 fl (6.2-12.0); Monocyte# 0.24 X10^3/uL; Monocyte% 6.2 % (0-10); NRBC Flagged by Analyzer 0 % (0-5); Neutrophil # 1.88 X10^3/uL (2.7-7.7); Neutrophil % 48.1 % (47-70); Platelet Count 237 K/mm3 (150-450); RBC Distribution Width CV 13.2 % (11.6-14.6); RBC Distribution Width SD 43.3 fl (35.1-43.9); Red Blood Count 4.52 M/mm3 (4.6-6.2); White Blood Count 3.9 K/mm3 (4.4-11.0)
[2020-09-25 12:22] LABS: Color, Urine Yellow (Yellow); Glucose, Dipstick Normal (Normal); Ketone-Dipstick Negative (Negative); Leukocyte Esterase-Dipstick Negative /ul (Negative); Nitrite-Dipstick Negative (Negative); Occult Blood-Urine Negative /ul (Negative); Protein-Dipstick Negative (Negative); Urine Bilirubin Dipstick Negative (Negative); Urine Clarity Clear (Clear); Urine Urobilinogen Normal (Normal)
[2020-09-25 12:30] LABS: Mucous, Urine 2+ /hpf (<or=2+); White Blood Cells 0-5 SEEN /hpf (0-5)
[2020-09-25 12:38] LABS: ALB/GLOB Ratio 1.1 RATIO (0.9-2.4); AST(SGOT) 15 U/L (15-37); Alanine Aminotransfer ALT/SGPT 25 U/L (16-61); Albumin, Serum 4.1 g/dL (3.2-5.0); Alkaline Phosphatase 91 U/L (45-117); Anion Gap 7 (5-15); BUN 19 mg/dL (7-18); BUN/Creat Ratio 20.7 RATIO (10-20); Calcium,Total 9.4 mg/dL (8.5-10.1); Chloride 106 mmol/L (98-107); Creatinine, Serum 0.92 mg/dL (0.70-1.30); EST Glomerular Filtration Rate 105 mL/min (>60); Est Glom Filt Rate - Afr Amer 127 mL/min (>60); Globulin 3.9 g/dL (2.2-4.2); Glucose 93 mg/dL (74-106); Lipase 121 U/L (73-393); Potassium 4.1 mmol/L (3.5-5.1); Sodium Level 140 mmol/L (136-145)
== END ==
PROVIDERS: PCP Family Medicine; Referring Provider Family Medicine; Visit Provider Family Medicine
DX: D72.819 Decreased white blood cell count, unspecified (principal)
CPT/HCPCS: 36415; 80053; 81001; 83690; 85025

== ENCOUNTER → 2020-11-03 13:08 | Outpatient (CLI) | payer OTHER, SELFPAY ==
[2019-11-20 10:12] VITALS: BMI 21.7
[2020-10-19 09:35] VITALS: BMI 20.7
[2020-11-03 15:13] LABS: Absolute Neutrophil Count 2.8 X10^3/uL (2.0-7.7); Basophil# 0.02 X10^3/uL; Basophil% 0.4 % (0-1); Eosinophil# 0.24 X10^3/uL; Eosinophils% 4.9 % (0-5); Hematocrit 39.3 % (40-54); Hemoglobin 12.9 g/dL (13.0-16.5); Lymphocyte % 26.7 % (19-41); Mean Corp Hgb Conc 32.8 g/dL (32-36); Mean Corpuscular Hgb 29.7 pg (27.0-32.0); Mean Corpuscular Volume 90.6 fL (80-94); Mean Platelet Vol. 10.5 fl (6.2-12.0); Monocyte# 0.51 X10^3/uL; Monocyte% 10.5 % (0-10); NRBC Flagged by Analyzer 0 % (0-5); Neutrophil # 2.79 X10^3/uL (2.7-7.7); Neutrophil % 57.3 % (47-70); Platelet Count 234 K/mm3 (150-450); RBC Distribution Width CV 12.8 % (11.6-14.6); RBC Distribution Width SD 42.2 fl (35.1-43.9); Red Blood Count 4.34 M/mm3 (4.6-6.2); White Blood Count 4.9 K/mm3 (4.4-11.0)
== END ==
PROVIDERS: PCP Family Medicine; Referring Provider Family Medicine; Visit Provider Family Medicine
DX: D72.819 Decreased white blood cell count, unspecified (principal)
CPT/HCPCS: 36415; 85025

== ENCOUNTER 2020-11-06 09:00 | Outpatient (RCR) | payer OTHER, SELFPAY ==
[2019-11-20 10:12] VITALS: BMI 21.7
--- NOTE | 2020-11-06 12:56 | HP.PT.NRP ---
NEO VARELA was seen in my office for initial evaluation on 08/28/20. The following Plan of Care was established for this patient: Patient/Client Instruction: Educate patient on: Condition, Plan of Care, Risk Factors, Benefits of Fitness Program For the Purpose of:: To improve self management, To improve ability to perform tasks related to life management, To improve tolerance to ADL's Therapeutic Exercise to Include: Strength training, Power training, Endurance training, Balance training, Body mechanics, Postural training For the Purpose of:: To improve nutrient delivery to tissue, To increase oxygenation perfusion, To improve muscle performance and motor function, To improve ability to perform ADL's, To increase tolerance to activity/condition/position, To improve ability of physical actions for home/community/work/leisure, To improve gait and locomotor functions, To improve health of tissue, To decrease soft tissue restriction, To increase flexibility/ROM, To improve safety with gait, To improve safety This patient was last seen in our office 11/06/20. Pertinent comments regarding their Physical therapy will appear below: Pt. will be DC from PT this date. Pt. progressed well with PT. He still has some spasticity and difficulty with walking without AD. He is EUNICE with K walker. Pt. does still have B knee valgus with B hip IR during stance phases. He has marked weakness at glute medius. He will be DC from PT this date with changes in insurance. Pt. will be DC to HEP this date. At this point I will be discontinuing this patient from physical therapy. I would be happy to see this patient again in the future if found appropriate by the physician. Thank you! Isac Brush, SERENET
== END 2020-11-06 14:44 | disposition home or self-care (01) ==
LOC: PT 09:00
PROVIDERS: PCP Family Medicine; Visit Provider Family Medicine
DX: M21.6X9 Other acquired deformities of unspecified foot (principal); M67.02 Short Achilles tendon (acquired), left ankle; G80.8 Other cerebral palsy
CPT/HCPCS: 97110; 97530

== ENCOUNTER 2021-06-17 11:30 | Outpatient (RCR) | payer MEDICARE, MEDICAID, SELFPAY ==
[2020-10-19 09:35] VITALS: BMI 20.7
--- NOTE | 2020-11-21 08:40 | HP.PTEVAL_ITS ---
Patient's Visit Information NEO VARELA is a 25 year old M referred to Physical Therapy by MARK QUEEN with a diagnosis of Congenital diplegia. Date of Evaluation: 11/13/20 Physical Therapist: Isac Brush DPT - Visit Plan Frequency: 2x /Week Duration: 6 Weeks Plan: Start with BLE strengthening, continue to progress LE stretching program. Add in gait mechanics with focus on improved posture with good knee/hip positioning. Educate importance of walking program and consistency with exercises. - Subjective Pt. is here today for his initial evaluation with diagnosis of congenital diplegia. Pt. arrives with his K walker EUNICE. He denies pain. No N/T in either LE. PT. reports overall doing well, but is hopeful to get back to more gym exercises as he did ~1 year ago. He used to do a lot of UE and LE strengthening. He did have foot reconstruction earlier this year and had the other foot doing the year prior. Pt. wears bilat AFOs with out complaints. Pt. is reports that his main goal is to walk independently at his sisters wedding next month. He would also like to get stronger and get back to the gym. He denies falls, no injuries noted. Pt. also goes to rec center in the day, but is not doing gym exercises there due to COVID restraints. Pt. reports wanting to walk with decreased hip ER/valgus positioning to increase stability in order to ambulate without AD. - Objective POSTURE: Pt. has slight flexed posture with standing with K walker. He has increased B hip IR and retro lean to apply pressure through K walker. Increased erect posture with VCing. Difficulty with correcting B hip positioning. Pt. has increased crouched posture without AD. PALPATION: No pain or issues with palpation of LEs. Tight musculature noted at B hamstrings with stretching. NEURO: Pt. has increased hyper reflexivity in B patellar DTR. pt. has marked tone in B HS. ROM: RLE: ankle 20deg DF, Knee: flexion full, ext lacking 38deg, hip full motion, except 3deg ext, abd 25deg, ER 40deg. LLE: ankle DF 22deg; knee- flexion full, ext lacking 40deg; hip flexion full, abd 29deg, ext 10deg, ER 33deg. MMT: RLE: knee: ext 4+/5, flexion 4/5; hip- flexion 4/5, abd 3-/5, ext 5/5, add 5/5, ER 3-/5, IR 5/5. LLE: knee: ext 4+/5, flexion 4/5; hip- flexion 4/5, abd 3-/5, ext 5/5, add 5/5, ER 3-/5, IR 5/5. Trunk flexion 5/5, trunk ext 4/5. GAIT: Pt ambulates with K walker with B hip IR and retro lean onto UE on K walker. He is able to improve his posture and BLE positioning with attention to this and with VCing, but difficulty to maintain. He is able to ambulate without AD, but has again an increased crouched pattern and increased hip adduction and IR positioning. 6MWT: 854 feet with K walker. TUG with K walker: 29.8sec. TUG without AD 15.9 sec. - Goals Goal 1:: LTG: pt. to be I with HEP for BLE strengthening and core strengthening. Goal Time Frame: 4-6 Weeks Goal 2:: LTG: Pt. to increased BLE ROM including HS, hip adductors and external rotation. 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 Goal Time Frame: 2-4 Weeks Goal 4:: LTG: Pt. to have increased distances with 6 MWT to 1200'+ with K walker. Goal Time Frame: 4-6 Weeks Goal 5:: LTG: Pt. to have increased TUG score without AD to 10sec and with AD to 20sec. Goal Time Frame: 4-6 Weeks - Rehabilitation Potential Physical Therapy Diagnosis: Pt. has signs and symptoms consistent with congenital diplegia. Pt. has subsequent B LE weakness, hypomobility, spasticity and difficulty with walking. Pt. would benefit from PT to address the above limitation progressing overall general mobility with improved safety and posture. Rehabilitation Potential: Good - Anticipated Interventions Patient/Client Instruction: Educate patient on: Condition, Plan of Care, Risk Factors, Benefits of Fitness Program For the Purpose of:: To improve health and function, To foster healthy habits, To improve decision making, To facilitate caregiver knowledge, To improve self management, To prevent re-injury, To improve ability to perform tasks related to life management Therapeutic Exercise to Include: Strength training, Power training, Endurance training, Postural training, Flexibilty training, Passive ROM, Active ROM For the Purpose of:: To increase ROM, To improve nutrient delivery to tissue, To increase oxygenation perfusion, To improve muscle performance and motor function, To improve ability to perform ADL's, To increase tolerance to activity/condition/position, To improve ability of physical actions for ho me/community/work/leisure, To improve gait and locomotor functions, To improve health of tissue, To decrease soft tissue restriction, To increase flexibility/ROM, To improve endurance, To improve balance, To improve safety with gait Thank you for the opportunity to evaluate your patient. For Medicare and Medicare HMO plans, please review the plan of care and approve it. It will need to be FAXED BACK to us at [phone] for Medicare purposes. For Medicare only, by signing this I certify the plan of care. Please let me know if there are questions or concerns regarding this plan of care. Physician Signature: Date:
--- NOTE | 2020-12-22 13:39 | HP.PTREVAL_ITS ---
MARK QUEEN, It has been my pleasure to treat NEO VARELA over the last 8 visits for Congenital diplegia. Please see the progress note below for an update on the physical therapy plan of care! Subjective: Pt. reports no pain today. He is walking well with K walker. Pt. reports doing gym exercises x2 per week. Objective/Function: ROM: Pt. has good ROM of B hips, except tight into ER and ER motions, ER to 30deg bilat and Ext to 5 deg bilat. PT. has B hamstring tightness limiting SH length to 40deg in 90/90 positioning. TU.75sec with out AD, 29.93sec with K walker EUNICE. 6 MWT: 1037' with K walker. He does present with continued B hip IR and crouched positioning. Improves wtih FWW, but does fall back into poor positioning with increased walking. Plan Plan: Pt. is progressing, but slowly with strengthening and gait progression. He is walking further with overall improved stability, but regresses into poor postures without VCing. Cont. to progress BLE and core strengthening, gait stability, postural control and stability. Balance/Gait/Functional tests - Balance/Special Test Scores Lower Extremity Functional Score: 46 Goals Goal 1:: LTG: pt. to be I with HEP for BLE strengthening and core strengthening. Goal Time Frame: 4-6 Weeks Goal Progress: Progressing Goal 2:: LTG: Pt. to increased BLE ROM including HS, hip adductors and external rotation. 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 Goal Time Frame: 2-4 Weeks Goal Progress: Progressing Goal 4:: LTG: Pt. to have increased distances with 6 MWT to 1200'+ with K walker. Goal Time Frame: 4-6 Weeks Goal Progress: Progressing Goal 5:: LTG: Pt. to have increased TUG score without AD to 10sec and with AD to 20sec. Goal Time Frame: 4-6 Weeks Goal Progress: Progressing Anticipated Interventions Patient/Client Instruction: Educate patient on: Condition, Plan of Care, Risk Factors, Benefits of Fitness Program For the Purpose of:: To improve health and function, To foster healthy habits, To improve decision making, To facilitate caregiver knowledge, To improve self management, To prevent re-injury, To improve ability to perform tasks related to life management Therapeutic Exercise to Include: Strength training, Power training, Endurance training, Postural training, Flexibilty training, Passive ROM, Active ROM For the Purpose of:: To increase ROM, To improve nutrient delivery to tissue, To increase oxygenation perfusion, To improve muscle performance and motor function, To improve ability to perform ADL's, To increase tolerance to activity/condition/position, To improve ability of physical actions for home/community/work/leisure, To improve gait and locomotor functions, To improve health of tissue, To decrease soft tissue restriction, To increase flexibility/ROM, To improve endurance, To improve balance, To improve safety with gait Please do not hesitate to contact me at [phone] by phone or if you have questions or concerns regarding this new plan of care! Sincerely, SERENE ChapmanT
--- NOTE | 2021-02-26 11:41 | HP.PTREVAL ---
MARK QUEEN, It has been my pleasure to treat NEO VARELA over the last 22 visits for Congenital diplegia. Please see the progress note below for an update on the physical therapy plan of care! Subjective: Pt reports his Left shoulder has been bothering him, he believes he might have slept wrong. Objective/Function: STRENGTH: RIGHT hip flexor 4, IR 3+, ER 3+,knee flexors 3+, extensors 5 ; LEFT RIGHT hip flexor 4, IR 3+, ER 3+,knee flexors 3+, extensors 5. gait: continues to walk with K walker. Pt. has increased B LE knee valgus, improves with VCing. STAIRS: Pt. is able to complete with 2 HR with reciprocal pattern. Pt. requires increased time to descend. Pt still limited in hamstring length, and continues to ambulate with significant hip IR and adduction. Pt still progressing to meet goals. Plan Plan: Continue strengthening exercises consider focusing on hip ER's. Balance/Gait/Functional tests - Balance/Special Test Scores Lower Extremity Functional Score: 51 TUG Test Time Seconds: 22 Tug Test: 20-30sec.=variable mobility Goals Goal 1:: LTG: pt. to be I with HEP for BLE strengthening and core strengthening. Goal Time Frame: 4-6 Weeks Goal Progress: Progressing Goal 2:: LTG: Pt. to increased BLE ROM including HS, hip adductors and external rotation. 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 Goal Time Frame: 2-4 Weeks Goal Progress: Progressing Goal 4:: LTG: Pt. to have increased distances with 6 MWT to 1200'+ with K walker. Goal Time Frame: 4-6 Weeks Goal Progress: Progressing Goal 5:: LTG: Pt. to have increased TUG score without AD to 10sec and with AD to 20sec. Goal Time Frame: 4-6 Weeks Goal Progress: Progressing Anticipated Interventions Patient/Client Instruction: Educate patient on: Condition, Plan of Care, Risk Factors, Benefits of Fitness Program For the Purpose of:: To improve health and function, To foster healthy habits, To improve decision making, To facilitate caregiver knowledge, To improve self management, To prevent re-injury, To improve ability to perform tasks related to life management Therapeutic Exercise to Include: Strength training, Power training, Endurance training, Postural training, Flexibilty training, Passive ROM, Active ROM For the Purpose of:: To increase ROM, To improve nutrient delivery to tissue, To increase oxygenation perfusion, To improve muscle performance and motor function, To improve ability to perform ADL's, To increase tolerance to activity/condition/position, To improve ability of physical actions for home/community/work/leisure, To improve gait and locomotor functions, To improve health of tissue, To decrease soft tissue restriction, To increase flexibility/ROM, To improve endurance, To improve balance, To improve safety with gait Please do not hesitate to contact me at [phone] by phone or if you have questions or concerns regarding this new plan of care! Sincerely, Isac Brush DPT
--- NOTE | 2021-04-13 17:56 | HP.PTREVAL_ITS ---
MARK QUEEN, It has been my pleasure to treat NEO VARELA over the last 32 visits for Congenital diplegia. Please see the progress note below for an update on the physical therapy plan of care! Subjective: Pt. reports overall doing okay. He reports no pain currently. Pt. reports doing gym exercises x2 days per week. He walked back with K walker with proper safety, but continues to presents with increased B knee valgus. No pain pre treatment. Objective/Function: ROM: Pt. has good ankle and knee ROM. tightness into ex tension. Pt. has very tight HS and quads. He has marked weakness in B hip abductors, ER and HS. I would like him to over train his glutes and HS in attempt to increase hip abductor activation. He is able to ambulate with improved upright posture with decreased B knee valgus, but not completely. He does tend to fall back into this poor posture if he does not focus on gait mechanics. I had him working on [employer] with PT support for balance today in order to engage his HS more to increase upright posture. Plan Plan: I would like him to continue with PT with focus on BLE strengthening (focus on glute med, glute max, hip ER strengthening). Gait control as well. Balance/Gait/Functional tests - Balance/Special Test Scores Lower Extremity Functional Score: 51 TUG Test Time Seconds: 22 Tug Test: 20-30sec.=variable mobility Goals Goal 1:: LTG: pt. to be I with HEP for BLE strengthening and core strengthening. Goal Time Frame: 4-6 Weeks Goal Progress: Progressing Goal 2:: LTG: Pt. to increased BLE ROM including HS, hip adductors and external rotation. 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 Goal Time Frame: 2-4 Weeks Goal Progress: Progressing Goal 4:: LTG: Pt. to have increased distances with 6 MWT to 1200'+ with K walker. Goal Time Frame: 4-6 Weeks Goal Progress: Progressing Goal 5:: LTG: Pt. to have increased TUG score without AD to 10sec and with AD to 20sec. Goal Time Frame: 4-6 Weeks Goal Progress: Progressing Anticipated Interventions Patient/Client Instruction: Educate patient on: Condition, Plan of Care, Risk Factors, Benefits of Fitness Program For the Purpose of:: To improve health and function, To foster healthy habits, To improve decision making, To facilitate caregiver knowledge, To improve self management, To prevent re-injury, To improve ability to perform tasks related to life management Therapeutic Exercise to Include: Strength training, Power training, Endurance training, Postural training, Flexibilty training, Passive ROM, Active ROM For the Purpose of:: To increase ROM, To improve nutrient delivery to tissue, To increase oxygenation perfusion, To improve muscle performance and motor function, To improve ability to perform ADL's, To increase tolerance to act ivity/condition/position, To improve ability of physical actions for home/community/work/leisure, To improve gait and locomotor functions, To improve health of tissue, To decrease soft tissue restriction, To increase flexibility/ROM, To improve endurance, To improve balance, To improve safety with gait Please do not hesitate to contact me at [phone] by phone or if you have questions or concerns regarding this new plan of care! Sincerely, Isac Brush DPT
--- NOTE | 2021-05-07 12:55 | HP.PTREVAL_ITS ---
MARK QUEEN, It has been my pleasure to treat NEO VARELA over the last 37 visits for Congenital diplegia. Please see the progress note below for an update on the physical therapy plan of care! Subjective: Pt. reports no new issues. Pt. arrives today walking with with k walker. Pt. reports being HEP compliant. No pain reported today. Objective/Function: Pt. as expected is tight in HS and hip flexors. He has marked weakness with his hip ER, abductors and hip stability. He braces with his adductors in stance. He has improved, slightly, with knee positioning in stance, but does revert to valgus/adducted posture without constant VCing. Pt. is doing a gym routine ~2 per week. He has been doing leg press/nustep/hip abduction machine. I talked to him about adding HS curl, knee extension. I also had him working on standing upright against a wall (facing) working on improvign posture and quad activation to keep LEs into TKE. Difficult for him to do. 6 MWT: 982' with k walker. TU.1 sec without AD (high guard posture). K walker 21.7sec difficulty with directional change. Plan Plan: Cont. with POC. Work on glute strength, quad strength, glute Medius, hip ER. Progress gym exercises. Add in standing time with focus on glute/quad activation for longer periods of time. Cont. to educate proper gait pattern for both knee positioning and hip extension. Balance/Gait/Functional tests - Balance/Special Test Scores Lower Extremity Functional Score: 53 TUG Test Time Seconds: 22 Tug Test: 20-30sec.=variable mobility Goals Goal 1:: LTG: pt. to be I with HEP for BLE strengthening and core strengthening. Goal Time Frame: 4-6 Weeks Goal Progress: Progressing Goal 2:: LTG: Pt. to increased BLE ROM including HS, hip adductors and external rotation. 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 Goal Time Frame: 2-4 Weeks Goal Progress: Progressing Goal 4:: LTG: Pt. to have increased distances with 6 MWT to 1200'+ with K walker. Goal Time Frame: 4-6 Weeks Goal Progress: Progressing Goal 5:: LTG: Pt. to have increased TUG score without AD to 10sec and with AD to 20sec. Goal Time Frame: 4-6 Weeks Goal Progress: Progressing Anticipated Interventions Patient/Client Instruction: Educate patient on: Condition, Plan of Care, Risk Factors, Benefits of Fitness Program For the Purpose of:: To improve health and function, To foster healthy habits, To improve decision making, To facilitate caregiver knowledge, To improve self management, To prevent re-injury, To improve ability to perform tasks related to life management Therapeutic Exercise to Include: Strength training, Power training, Endurance training, Postural training, Flexibilty training, Passive ROM, Active ROM For the Purpose of:: To increase ROM, To improve nutrient delivery to tissue, To increase oxygenation perfusion, To improve muscle performance and motor function, To improve ability to perform ADL's, To increase tolerance to activity/condition/position, To improve ability of physical actions for home/community/work/leisure, To improve gait and locomotor functions, To improve health of tissue, To decrease soft tissue restriction, To increase flexibilit y/ROM, To improve endurance, To improve balance, To improve safety with gait Please do not hesitate to contact me at [phone] by phone or if you have questions or concerns regarding this new plan of care! Sincerely, Isac Brush DPT
--- NOTE | 2021-06-29 08:40 | HP.PTREVAL ---
MARK QUEEN, It has been my pleasure to treat NEO VARELA over the last 44 visits for Congenital diplegia. Please see the progress note below for an update on the physical therapy plan of care! Subjective: Pt. reports overall doing well. He arrives with his K walker with good/safe use. He reports he has been working without issues. Still needs his walker to tolerate standing for longer periods due to fatigue and balance issues. Pt. reports no pain pre treatment today. Objective/Function: ROM: Pt. has decent ROM, but continues to have tight B hamstrings and limited hip extension. Pt. is stretching and is I with his stretching routine. MMT: Pt. has decent BLE strength, except very weak hip abductors and external rotators noted. 3-/5 bilaterally with each muscle group. Pt. had good core strength and good glute strength. GAIT: Pt. ambulates safely with K walker, but does have marked hip IR and adducted positions. Does improve with VC/TCing to increase erect posture. Fatigues fast with increased walking. With out K walker, patient has increased adducted IR positioning with crouched posture. He is not as safe without AD, but is able to complete, tends to furniture cruise. TUG: with walker 27sec, without AD 18sec, but requires CGA without AD. 6 MWT: Pt. ambulated with K walker. 973 feet. Frequent VCing to keep K walker closer and to increase proper posture throughout. He is improving with tempo with gait and his stability, but continues to have adducted and IR positioning frequently with gait. this seems to be unchanging. I will ask for more visit with focus on endruance with gait and stability with walker in order to improve TUG and 6 MWT. Plan Plan: Asking for more visits for patient. Balance/Gait/Functional tests - Balance/Special Test Scores Lower Extremity Functional Score: 53 TUG Test Time Seconds: 22 Tug Test: 20-30sec.=variable mobility Goals Goal 1:: LTG: pt. to be I with HEP for BLE strengthening and core strengthening. Goal Time Frame: 4-6 Weeks Goal Progress: Goal Met Goal 2:: LTG: Pt. to increased BLE ROM including HS, hip adductors and external rotation. Goal Time Frame: 4-6 Weeks Goal Progress: Progressing Goal 3:: STG: Pt. 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 Goal Time Frame: 2-4 Weeks Goal Progress: Progressing Goal 4:: LTG: Pt. to have increased distances with 6 MWT to 1200'+ with K walker. Goal Time Frame: 4-6 Weeks Goal Progress: Progressing Goal 5:: LTG: Pt. to have increased TUG score without AD to 10sec and with AD to 20sec. Goal Time Frame: 4-6 Weeks Goal Progress: Progressing Anticipated Interventions Patient/Client Instruction: Educate patient on: Condition, Plan of Care, Risk Factors, Benefits of Fitness Program For the Purpose of:: To improve health and function, To foster healthy habits, To improve decision making, To facilitate caregiver knowledge, To improve self management, To prevent re-injury, To improve ability to perform tasks related to life management Therapeutic Exercise to Include: Strength training, Power training, Endurance training, Postural training, Flexibilty training, Passive ROM, Active ROM For the Purpose of:: To increase ROM, To improve nutrient delivery to tissue, To increase oxygenation perfusion, To improve muscle performance and motor function, To improve ability to perform ADL's, To increase tolerance to activity/condition/position, To improve ability of physical actions for home/community/work/leisure, To improve gait and locomotor functions, To improve health of tissue, To decrease soft tissue restriction, To increase flexibility/ROM, To improve endurance, To improve balance, To improve safety with gait Please do not hesitate to contact me at [phone] by phone or if you have questions or concerns regarding this new plan of care! Sincerely, Isac Brush DPT
== END 2021-06-17 19:00 | disposition home or self-care (01) ==
LOC: PT 11:30
PROVIDERS: PCP Family Medicine
DX: G80.8 Other cerebral palsy (principal)
CPT/HCPCS: 97110; 97161; 97164; 97530

== ENCOUNTER → 2021-09-29 | Outpatient (CLI) | payer MEDICARE, MEDICAID, SELFPAY ==
[2021-09-29 09:52] LABS: Absolute Lymphocyte Count 1.81 X10^3/uL (0.83-4.51); Basophil# 0.02 X10^3/uL; Basophil% 0.5 % (0-1); Eosinophil# 0.18 X10^3/uL; Eosinophils% 4.1 % (0-5); Hematocrit 38.4 % (40-54); Hemoglobin 12.8 g/dL (13.0-16.5); Lymphocyte # 1.81 X10^3/ul (0.83-4.51); Lymphocyte % 41.6 % (19-41); Mean Corp Hgb Conc 33.3 g/dL (32-36); Mean Corpuscular Hgb 29.6 pg (27.0-32.0); Mean Corpuscular Volume 88.7 fL (80-94); Mean Platelet Vol. 10.3 fl (6.2-12.0); Monocyte# 0.32 X10^3/uL; Monocyte% 7.4 % (0-10); NRBC Flagged by Analyzer 0 % (0-5); Neutrophil % 45.9 % (47-70); Platelet Count 236 K/mm3 (150-450); RBC Distribution Width CV 12.8 % (11.6-14.6); RBC Distribution Width SD 41.7 fl (35.1-43.9); Red Blood Count 4.33 M/mm3 (4.6-6.2); White Blood Count 4.4 K/mm3 (4.4-11.0)
[2021-09-29 10:24] LABS: ALB/GLOB Ratio 1.1 RATIO (0.9-2.4); AST(SGOT) 13 U/L (15-37); Alanine Aminotransfer ALT/SGPT 27 U/L (16-61); Alkaline Phosphatase 86 U/L (45-117); Anion Gap 8 (5-15); BUN 18 mg/dL (7-18); BUN/Creat Ratio 20.1 RATIO (10-20); Calcium,Total 9.6 mg/dL (8.5-10.1); Chloride 103 mmol/L (98-107); Creatinine, Serum 0.89 mg/dL (0.70-1.30); EST Glomerular Filtration Rate 108 mL/min (>60); Est Glom Filt Rate - Afr Amer 130 mL/min (>60); Globulin 3.7 g/dL (2.2-4.2); Glucose 91 mg/dL (74-106); Potassium 3.6 mmol/L (3.5-5.1); Protein, Total 7.7 g/dL (6.4-8.2); Sodium Level 140 mmol/L (136-145)
== END | disposition home or self-care (01) ==
LOC: MTLAB 08:09
PROVIDERS: PCP Family Medicine; Referring Provider Family Medicine; Visit Provider Family Medicine
DX: Z13.220 Encounter for screening for lipoid disorders (principal); G80.8 Other cerebral palsy
CPT/HCPCS: 36415; 80053; 85025

== ENCOUNTER → 2021-10-08 | Outpatient (CLI) | payer MEDICARE, MEDICAID, SELFPAY ==
[2021-10-08 12:42] LABS: Absolute Lymphocyte Count 1.56 X10^3/uL (0.83-4.51); Absolute Neutrophil Count 1.8 X10^3/uL (2.0-7.7); Basophil# 0.03 X10^3/uL; Basophil% 0.8 % (0-1); Eosinophil# 0.14 X10^3/uL; Eosinophils% 3.7 % (0-5); Hemoglobin 12.2 g/dL (13.0-16.5); Lymphocyte # 1.56 X10^3/ul (0.83-4.51); Lymphocyte % 41.1 % (19-41); Mean Corpuscular Hgb 29.7 pg (27.0-32.0); Mean Platelet Vol. 10.4 fl (6.2-12.0); Monocyte# 0.26 X10^3/uL; Monocyte% 6.8 % (0-10); NRBC Flagged by Analyzer 0 % (0-5); Neutrophil % 47.3 % (47-70); Platelet Count 230 K/mm3 (150-450); RBC Distribution Width CV 12.9 % (11.6-14.6); RBC Distribution Width SD 42.5 fl (35.1-43.9); Red Blood Count 4.11 M/mm3 (4.6-6.2); White Blood Count 3.8 K/mm3 (4.4-11.0)
[2021-10-08 13:22] LABS: Vitamin B12 502 pg/mL (211-911)
[2021-10-08 14:04] LABS: Ferritin 83 ng/mL (26-388); Iron 97 ug/dL (65-175); Iron Binding Capacity,Total 328 ug/dL (250-450); PERCENT IRON SATURATION 29.6 % (15.0-55.0)
== END | disposition home or self-care (01) ==
LOC: MTLAB 11:10
PROVIDERS: PCP Family Medicine; Referring Provider Family Medicine; Visit Provider Family Medicine
DX: D64.9 Anemia, unspecified (principal)
CPT/HCPCS: 36415; 82607; 82728; 82746; 83540; 83550; 85025

== ENCOUNTER → 2021-10-13 | Outpatient (CLI) | payer MEDICARE, MEDICAID, SELFPAY | END | disposition home or self-care (01) | LOC: MTLAB 10:45 | PROVIDERS: PCP Family Medicine; Referring Provider Family Medicine; Visit Provider Family Medicine | DX: D64.9 Anemia, unspecified (principal) | CPT/HCPCS: 82274 ==

== ENCOUNTER → 2021-11-09 | Outpatient (CLI) | payer MEDICARE, MEDICAID, SELFPAY ==
[2021-11-09 12:14] LABS: Absolute Lymphocyte Count 1.53 X10^3/uL (0.83-4.51); Absolute Neutrophil Count 2.1 X10^3/uL (2.0-7.7); Basophil# 0.02 X10^3/uL; Basophil% 0.5 % (0-1); Eosinophil# 0.14 X10^3/uL; Eosinophils% 3.4 % (0-5); Hematocrit 37.2 % (40-54); Hemoglobin 12.4 g/dL (13.0-16.5); Lymphocyte # 1.53 X10^3/ul (0.83-4.51); Lymphocyte % 37.7 % (19-41); Mean Corp Hgb Conc 33.3 g/dL (32-36); Mean Corpuscular Hgb 29.8 pg (27.0-32.0); Mean Corpuscular Volume 89.4 fL (80-94); Mean Platelet Vol. 10.3 fl (6.2-12.0); Monocyte# 0.24 X10^3/uL; Monocyte% 5.9 % (0-10); NRBC Flagged by Analyzer 0 % (0-5); Neutrophil # 2.12 X10^3/uL (2.7-7.7); Neutrophil % 52.3 % (47-70); Platelet Count 234 K/mm3 (150-450); RBC Distribution Width CV 12.7 % (11.6-14.6); RBC Distribution Width SD 41.4 fl (35.1-43.9); RET-HE 33.2 pg (30-35); Red Blood Count 4.16 M/mm3 (4.6-6.2); Reticulocyte Count 1.14 % (0.5-1.5); White Blood Count 4.1 K/mm3 (4.4-11.0)
[2021-11-09 13:06] LABS: Ferritin 78 ng/mL (26-388); Iron 73 ug/dL (65-175); Iron Binding Capacity,Total 339 ug/dL (250-450); PERCENT IRON SATURATION 21.5 % (15.0-55.0)
[2021-11-09 13:21] LABS: Vitamin B12 505 pg/mL (211-911)
== END | disposition home or self-care (01) ==
PROVIDERS: PCP Family Medicine; Referring Provider Family Medicine; Visit Provider Family Medicine
DX: D64.9 Anemia, unspecified (principal)
CPT/HCPCS: 36415; 82607; 82728; 82746; 83540; 83550; 85025; 85045

== ENCOUNTER 2022-02-01 10:30 | Outpatient (RCR) | payer MEDICARE, MEDICAID, SELFPAY ==
--- NOTE | 2021-09-21 14:08 | HP.PTREVAL_ITS ---
MARK QUEEN, It has been my pleasure to treat NEO VARELA over the last 60 visits for CP. Please see the progress note below for an update on the physical therapy plan of care! Subjective: Pt. reports overall doing well. He reports no pain today. He just got back from vacation for 2 weeks. He reports being lax with his stretching recently. He has been working out at local gym working on leg strengthening and reports trying to walk further in 1 attempt. Objective/Function: TUG: with out ad- 13.68sec, K walker 33.11sec. Pt. was steadier with walker, but faster without AD. He walks much safer with AD. 6 MWT: 895feet with K walker. MMT: RLE: knee: ext 4+/5, flexion 3/5; hip: flexion 4+/5, abd 3-/5, ext 5/5. LLE: knee: ext 4/5, flexion 3-/5; hip: flexion 4+/5, abd 3-/5, ext 5/5. GAIT: Pt. ambulates with K walker. Pt. has increased B hip IR with increased knee valgus and lacking B knee extension during stance phase. This worsens with out use of AD. ROM: Pt. has good ROM of B knees and hips, ext hip extension to 5deg/ea. HS tight bilaterally (lacking 45deg RLE and 50deg LLE) measured in 90/90. Due to the nature of his pathology and subsequent weakness, he will most likely never be prefect. I would like him to have increased B hip strength allowing for increased safety and stability with gait and functional mobility. Plan Plan: Asking for further visits with PT. To work on further stability, gait mechanics and hip strengthening. Balance/Gait/Functional tests - Balance/Special Test Scores Lower Extremity Functional Score: 47 Goals Goal 1:: LTG: pt. to be I with gym program for strengthening his LEs. Goal Time Frame: 4-6 Weeks Goal Progress: Progressing Goal 2:: STG: PT. to complete 6 MWT. NEW GOAL: Pt. to complete 6 MWT with distance of 1000'. Goal Time Frame: 4-6 Weeks Goal Progress: Progressing Goal 3:: LTG: Pt. to have increased hip abd strength to at least 4-/5 bilaterally, B knee ext to 5/5 and B knee flexion to 4+/5 allowing for increased stability with gait and functional mobility. Goal Time Frame: 4-6 Weeks Goal Progress: Progressing Anticipated Interventions Patient/Client Instruction: Educate patient on: Condition, Plan of Care, Risk Factors, Benefits of Fitness Program For the Purpose of:: To foster healthy habits, To improve decision making, To facilitate caregiver knowledge, To improve self management, To prevent re- injury, To improve ability to perform tasks related to life management Therapeutic Exercise to Include: Strength training, Power training, Endurance training, Flexibilty training, Gait and locomotor training, Passive ROM, Active ROM For the Purpose of:: To decrease pain, To decrease swelling/inflammation, To increase ROM, To improve nutrient delivery to tissue, To increase oxygenation perfusion, To improve muscle performance and motor function, To improve ability to perform ADL's Please do not hesitate to contact me at [phone] by phone or if you have questions or concerns regarding this new plan of care! Sincerely, Isac Brush DPT
--- NOTE | 2021-11-05 10:19 | HP.PTREVAL_ITS ---
MARK QUEEN, It has been my pleasure to treat NEO VARELA over the last 72 visits for CP. Please see the progress note below for an update on the physical therapy plan of care! 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 They would like to try aquatic therapy and continue working on his HEP indep in the gym. Objective/Function: Patient was not feeling well today- held TUG and 6 min walk test. Ambulation into the clinic he uses his K-walker- valgus at the knees and crouched pattern. MMT: RLE: knee: ext 4+/5, flexion 3/5; hip: flexion 4+/5, abd 3-/5, ext 5/5. LLE: knee: ext 4/5, flexion 3-/5; hip: flexion 4+/5, abd 3-/5, ext 5/5. ROM: Pt. has good ROM of B knees and hips, ext hip extension to 5 deg/ea. HS tight bilaterally (lacking 45deg RLE and 50deg LLE) measured in 90/90. Due to the nature of his pathology and subsequent weakness, he will most likely never be prefect. Hopes at this time are maintenance of his current functional levels Plan Plan: 11/05/21: Aquatic Therapy- Work on further stability, gait mechanics and hip strengthening. Balance/Gait/Functional tests - Balance/Special Test Scores Lower Extremity Functional Score: 47 Goals Goal 1:: LTG: pt. to be I with gym program for strengthening his LEs. Goal Time Frame: 4-6 Weeks Goal Progress: Progressing Goal 2:: STG: PT. to complete 6 MWT. NEW GOAL: Pt. to complete 6 MWT with distance of 1000'. Goal Time Frame: 4-6 Weeks Goal Progress: Progressing Goal 3:: LTG: Pt. to have increased hip abd strength to at least 4-/5 bilaterally, B knee ext to 5/5 and B knee flexion to 4+/5 allowing for increased stability with gait and functional mobility. Goal Time Frame: 4-6 Weeks Goal Progress: Progressing Anticipated Interventions Patient/Client Instruction: Educate patient on: Condition, Plan of Care, Risk Factors, Benefits of Fitness Program For the Purpose of:: To foster healthy habits, To improve decision making, To facilitate caregiver knowledge, To improve self management, To prevent re- injury, To improve ability to perform tasks related to life management Therapeutic Exercise to Include: Strength training, Power training, Endurance training, Flexibilty training, Gait and locomotor training, Passive ROM, Active ROM For the Purpose of:: To decrease pain, To decrease swelling/inflammation, To increase ROM, To improve nutrient delivery to tissue, To increase oxygenation perfusion, To improve muscle performance and motor function, To improve ability to perform ADL's Please do not hesitate to contact me at [phone] by phone or if you have questions or concerns regarding this new plan of care! Sincerely, Marlena Osborn DPT
--- NOTE | 2022-01-01 12:36 | HP.PTREVAL_ITS ---
MARK QUEEN, It has been my pleasure to treat NEO VARELA over the last 83 visits for CP. Please see the progress note below for an update on the physical therapy plan of care! Subjective: Pt. reports overall doing better. I felt like the poor exercises were helpful. Pt. reports being able to stand for longer periods of time. He is able to work without issues, standing up to 30 min at a time with his K walker. No pain noted Objective/Function: ROM: Pt. has decent ROM of BLEs. He is very tight in B hamstrings and hip extension. He is also limited with B knee extension as well. MMT: Pt. has overall pretty good strength in BLEs, except hip abd (5.1# on R side, and 3.4# on L side) as well as hip ER (6.0# on R side, 5.1# on L side). He has good hip extension strength (but limited ROM) and good strength of B HS and quads. GAIT: Pt. is able to walk with K walker, but has marked B hip IR and knee valgus positioning as well. 6 MWT: 1015feet. Pt. overall did well. He continues to have B limited hip abd and ER strength. Due to his he ambulates with an increased crouched pattern and hip IR and adducted posture for increased stability. I do think he needs to continue with strengthening as best that he can with the notion that he will be independent in both the pool and gym exercises. I am asking for more PT visit x2 per week for 4 weeks, 1 visit in pool and 1 visit on land. Plan Plan: I am asking for more PT visit x2 per week for 4 weeks, 1 visit in pool and 1 visit on land. Focus aquatics on hip abd and ER strengthening, land focus on functional strength with squatting and walking postural progressions. Balance/Gait/Functional tests - Balance/Special Test Scores Lower Extremity Functional Score: 52 Goals Goal 1:: LTG: pt. to be I with gym program for strengthening his LEs. Goal Time Frame: 4-6 Weeks Goal Progress: Progressing Goal 2:: STG: PT. to complete 6 MWT. NEW GOAL: Pt. to complete 6 MWT with distance of 1000'. Goal Time Frame: 4-6 Weeks Goal Progress: Progressing Goal 3:: LTG: Pt. to have increased hip abd strength to at least 4-/5 bilaterally, B knee ext to 5/5 and B knee flexion to 4+/5 allowing for increased stability with gait and functional mobility. Goal Time Frame: 4-6 Weeks Goal Progress: Progressing Anticipated Interventions Patient/Client Instruction: Educate patient on: Condition, Plan of Care, Risk Factors, Benefits of Fitness Program For the Purpose of:: To foster healthy habits, To improve decision making, To facilitate caregiver knowledge, To improve self management, To prevent re- injury, To improve ability to perform tasks related to life management Therapeutic Exercise to Include: Strength training, Power training, Endurance training, Flexibilty training, Gait and locomotor training, Passive ROM, Active ROM For the Purpose of:: To decrease pain, To decrease swelling/inflammation, To increase ROM, To improve nutrient delivery to tissue, To increase oxygenation perfusion, To improve muscle performance and motor function, To improve ability to perform ADL's Please do not hesitate to contact me at [phone] by phone or if you have questions or concerns regarding this new plan of care! Sincerely, Isac Brush DPT
== END 2022-02-01 19:00 | disposition home or self-care (01) ==
LOC: PT 10:30
PROVIDERS: PCP Family Medicine
DX: G80.8 Other cerebral palsy (principal)
CPT/HCPCS: 97110; 97113; 97164

== ENCOUNTER 2022-08-19 11:30 | Outpatient (RCR) | payer MEDICARE, MEDICAID, SELFPAY ==
--- NOTE | 2022-03-17 09:46 | HP.PTREVAL ---
MARK QUEEN, It has been my pleasure to treat NEO VARELA over the last 93 visits for CP. Please see the progress note below for an update on the physical therapy plan of care! Subjective: Pt. reports overall doing well. He has been doing 1 visit in the pool and 1 visit on land. He reports no pain and just got back from vacation to [place]. He reports he was doing some of his pool exercises in the pool there. Objective/Function: ROM: Pt. has expected ROM. Pt has tight B HS, not much change in overall ROM. Pt. has tightness into B hip extension as well. MMT: 5/5 knee extension, 4/5 B HS; hip: flexion 4/5, abd 3-/5, ext 4/5, ER 3-/5, add 5/5. Core strength- fair. GAIT: Pt. ambulated with K walker with improved upright posture, He does have increased hip add and hip IR (patient able to improve with VCing). He was able to ambulate without AD as well, but has marked increase in hip add and IR positioning. 6 MWT with K walker: 1311 feet. Plan Plan: Asking for further Visits x1 per week, (alternating 1 in pool and 1 on land) to maintain current strength and functional mobility. Goal is to progress to full I program in both settings with assistance from caregivers as needed. Balance/Gait/Functional tests - Balance/Special Test Scores Lower Extremity Functional Score: 56 Goals Goal 1:: LTG: Pt. to be I with HEP for both land and aquatic exercises. Goal Time Frame: 4-6 Weeks Goal Progress: Progressing Goal 2:: LTG: Pt. to be able to walk with improved heel strike and decreased hip IR/adducted positoning. Goal Time Frame: 4-6 Weeks Goal Progress: Progressing Anticipated Interventions Patient/Client Instruction: Educate patient on: Condition, Plan of Care, Risk Factors, Benefits of Fitness Program For the Purpose of:: To improve decision making, To facilitate caregiver knowledge, To improve self management, To prevent re-injury, To improve ability to perform tasks related to life management Therapeutic Exercise to Include: Strength training, Power training, Flexibilty training, Gait and locomotor training, In an aquatic setting, Dynamic Lumbar Stabilization For the Purpose of:: To decrease level of supervision to perform tasks, To improve ability of physical actions for home/community/work/leisure, To improve gait and locomotor functions, To improve health of tissue, To decrease soft tissue restriction Please do not hesitate to contact me at [phone] by phone or if you have questions or concerns regarding this new plan of care! Sincerely, SERENE ChapmanT
== END 2022-08-19 19:00 | disposition home or self-care (01) ==
LOC: PT 11:30
PROVIDERS: PCP Family Medicine
DX: G80.8 Other cerebral palsy (principal)
CPT/HCPCS: 97110; 97113; 97140; 97164

== ENCOUNTER → 2022-09-30 | Outpatient (CLI) | payer MEDICARE, MEDICAID, SELFPAY ==
[2022-09-30 16:05] LABS: Absolute Neutrophil Count 2.3 X10^3/uL (2.0-7.7); Basophil# 0.03 X10^3/uL; Basophil% 0.6 % (0-1); Eosinophil# 0.26 X10^3/uL; Eosinophils% 5.1 % (0-5); Hematocrit 38.4 % (40-54); Hemoglobin 12.7 g/dL (13.0-16.5); Lymphocyte % 41.4 % (19-41); Mean Corp Hgb Conc 33.1 g/dL (32-36); Mean Corpuscular Hgb 29.5 pg (27.0-32.0); Mean Corpuscular Volume 89.1 fL (80-94); Mean Platelet Vol. 10.5 fl (6.2-12.0); Monocyte# 0.36 X10^3/uL; Monocyte% 7.1 % (0-10); NRBC Flagged by Analyzer 0 % (0-5); Neutrophil % 45.4 % (47-70); Platelet Count 229 K/mm3 (150-450); RBC Distribution Width CV 13.2 % (11.6-14.6); RBC Distribution Width SD 43.4 fl (35.1-43.9); Red Blood Count 4.31 M/mm3 (4.6-6.2); White Blood Count 5.1 K/mm3 (4.4-11.0)
[2022-09-30 16:12] LABS: AST(SGOT) 20 U/L (15-37); Alanine Aminotransfer ALT/SGPT 34 U/L (16-61); Alkaline Phosphatase 98 U/L (45-117); Anion Gap 6 (5-15); BUN 15 mg/dL (7-18); BUN/Creat Ratio 15.3 RATIO (10-20); Chloride 104 mmol/L (98-107); Cholesterol 209 mg/dL (200); Creatinine, Serum 0.98 mg/dL (0.70-1.30); EST Glomerular Filtration Rate 96 mL/min (>60); Est Glom Filt Rate - Afr Amer 116 mL/min (>60); Globulin 4.1 g/dL (2.2-4.2); Glucose 85 mg/dL (74-106); High Density Lipoprotein 63 mg/dL; Potassium 3.9 mmol/L (3.5-5.1); Protein, Total 8.1 g/dL (6.4-8.2); Sodium Level 139 mmol/L (136-145); Triglycerides 168 mg/dL; Very Low Density Lipoprotein 34 mg/dL (5-40)
== END | disposition home or self-care (01) ==
LOC: MTLAB 13:35
PROVIDERS: PCP Family Medicine; Referring Provider Family Medicine; Visit Provider Family Medicine
DX: G80.1 Spastic diplegic cerebral palsy (principal); E78.2 Mixed hyperlipidemia; I10 Essential (primary) hypertension
CPT/HCPCS: 36415; 80053; 80061; 85025

== ENCOUNTER 2023-02-21 13:00 | Outpatient (RCR) | payer MEDICARE, MEDICAID, SELFPAY ==
--- NOTE | 2022-10-15 09:22 | HP.PTREVAL ---
Re-Evaluation Intro: MARK QUEEN, It has been my pleasure to treat NEO VARELA over the last 10 visits for CP. Please see the progress note below for an update on the physical therapy plan of care! Subjective Subjective: Pt. is being seen today for his recheck in PT. Pt. reports having increased R knee pain today. He is unsure why. Pt. has been doing PT on land and in aquatics as well, x1 per week each. pt. is having increased R knee pain with standing and with walking. He is using is K walker all the time with gait. Pt. also has a new job at local [employer] in the [employer] department. He is able to sit most of the time with this job. Objective Objective/Function: R knee: his ROM and strength appear to be appropriate. He does have increased tenderness along R patellar tendon. NO signs of laxity. No crepitus noted. Pt. has decent strength. He did have mild increase in tenderness with knee extension testing. This appears to be more of a patellar tendinitis, most likely due to his crouched pattern with walking. Pt. continues to have tight HS, hip adductors. Marked weakness with hip abductors, hip flexors and HS. GAIT: Pt. ambulates with K walker with retro lean, crouched pattern with B hip IR positioning. He is able to improve, but not fully correct. Pt. requires frequent VCing to improve and maintain improved postures. 6 MWT: Pt. ambulated 1298feet with K walker without limitations. Frequent VCing to improved postures. No increased R knee pain with trial today. Plan Plan Plan: Asking for more visits to continue with working on BLE flexibility in order to improve/maintain current posture with walking. Add in BLE strengthening programs for both land and aquatics. Pt. to progress to I programs with both. Instruct on both quad strengthening exercises and glute strengthening to improved postures to reduce stress to anterior knee with all standing exercises. Goals Goals Goal 1:: LTG: pt. to be I with HEP for both land and aquatic exercises to progress to I programs. Goal Time Frame: 4-6 Weeks Goal Progress: Progressing Goal 2:: LTG: Pt. to be able to ambulate with K walker with improved posture with reduce retro and crouched pattern. Goal Time Frame: 4-6 Weeks Goal Progress: Progressing Goal 3:: LTG: Pt. to complete 6 MWT with distance to 1400ft. Goal Time Frame: 4-6 Weeks Goal Progress: Progressing Goal 4:: LTG: Pt. to report no R knee pain with all functional activities including work, standing and walking. Goal Time Frame: 4-6 Weeks Goal Progress: Progressing Anticipated Interventions Anticipated Interventions Patient/Client Instruction: Educate patient on: Condition, Plan of Care, Risk Factors and Benefits of Fitness Program For the Purpose of:: To foster healthy habits, To improve decision making, To facilitate caregiver knowledge, To improve self management, To prevent re-injury and To improve ability to perform tasks related to life management Therapeutic Exercise to Include: Strength training, Power training, Balance training, Coordination, Postural training, Flexibilty training, Gait and locomotor training, In an aquatic setting and Dynamic Lumbar Stabilization For the Purpose of:: To decrease pain, To increase ROM, To improve nutrient delivery to tissue, To increase oxygenation perfusion, To improve muscle performance and motor function, To improve ability to perform ADL's, To increase tolerance to activity/condition/position, To improve performance and independence with ADL's, To improve gait and locomotor functions, To improve health of tissue and To decrease soft tissue restriction Re-Evaluation Ending Re-evaluation ending: Please do not hesitate to contact me at [phone] by phone or if you have questions or concerns regarding this new plan of care! Sincerely, Isac Brush DPT
--- NOTE | 2023-01-28 08:57 | HP.PTREVAL_ITS ---
Re-Evaluation Intro: MARK QUEEN, It has been my pleasure to treat NEO VARELA over the last 27 visits for CP. Please see the progress note below for an update on the physical therapy plan of care! Subjective Subjective: Pt. reports having some pain in his foot. This was evalutated by physician and determined a strain in his foot. Given steroid for this which has been helping. Objective Objective/Function: 6 MWT: 1149 feet with K walker. Pt. does have increased B hip IR in stance, worsen with SLS positioning. with VCing this does improve. MMT: Pt. continues to have marked weakness in his glute medius 3+/5 bilat, 4+/5 B glute max, hip flexor 4/5 bilat. sit to stand 30 sec rep test 3 without use of UEs, Pt. tends to lean posteriorly then occasional anteriorly. Difficulty to maintain good stability without use of UEs. POSTURE: Pt. has difficulty with TKE in stance, tends to stand with large hip extension in stance. Pt. is better with a K walker. gait: pt. continues to have increased B knee valgus with hip IR in stance worse in stance phase. He is no longer having any knee pain, but has been having some L foot pain on the dorsal side. He was check out by podiatry whom reported it was just a sprain and wanted him to continue to strengthen and progress. Plan Plan Plan: I am asking for further visits to continue with work on in core and hip strengthening to aid with gait, posture and standing stability. Balance/Gait/Functional tests Balance/Special Test Scores Lower Extremity Functional Score: 42 Goals Goals Goal 1:: LTG: pt. to be I with HEP for both land and aquatic exercises to progress to I programs. Goal Time Frame: 4-6 Weeks Goal Progress: Progressing Goal 2:: LTG: Pt. to be able to ambulate with K walker with improved posture with reduce retro and crouched pattern. Goal Time Frame: 4-6 Weeks Goal Progress: Progressing Goal 3:: LTG: Pt. to complete 6 MWT with distance to 1400ft. Goal Time Frame: 4-6 Weeks Goal Progress: Progressing Goal 4:: LTG: Pt. to report no R knee pain with all functional activities including work, standing and walking. Goal Time Frame: 4-6 Weeks Goal Progress: Goal Met Anticipated Interventions Anticipated Interventions Patient/Client Instruction: Educate patient on: Condition, Plan of Care, Risk Factors and Benefits of Fitness Program For the Purpose of:: To foster healthy habits, To improve decision making, To facilitate caregiver knowledge, To improve self management, To prevent re-injury and To improve ability to perform tasks related to life management Therapeutic Exercise to Include: Strength training, Power training, Balance training, Coordination, Postural training, Flexibilty training, Gait and locomotor training, In an aquatic setting and Dynamic Lumbar Stabilization For the Purpose of:: To decrease pain, To increase ROM, To improve nutrient delivery to tissue, To increase oxygenation perfusion, To improve muscle performance and motor function, To improve ability to perform ADL's, To increase tolerance to activity/condition/position, To improve performance and independence with ADL's, To improve gait and locomotor functions, To improve health of tissue and To decrease soft tissue restriction Re-Evaluation Ending Re-evaluation ending: Please do not hesitate to contact me at [phone] by phone or Fax: if you have questions or concerns regarding this new plan of care! Sincerely, Isac Brush DPT
== END 2023-02-21 19:00 | disposition home or self-care (01) ==
LOC: PT 13:00
PROVIDERS: PCP Family Medicine
DX: G80.8 Other cerebral palsy (principal)
CPT/HCPCS: 97110; 97113; 97164

== ENCOUNTER 2023-09-22 10:00 | Outpatient (RCR) | payer MEDICARE, MEDICAID, SELFPAY ==
--- NOTE | 2023-05-02 13:07 | HP.PTREVAL ---
Re-Evaluation Intro: Dr. Cruz Harry MD, It has been my pleasure to treat NEO VARELA over the last 38 visits for CP. Please see the progress note below for an update on the physical therapy plan of care! Subjective Subjective: Pt. reports overall doing well. pt. reports no longer having any knee pain. Pt. arrives using his K walker with good tolerance. No issues with gym exercises. Objective Objective/Function: Pt. has good hip ROM without issues. Pt. has tightness in B HS 45deg bilaterally no pain noted. MMT: PT. has good hip strength with extension 5/5, flexion 4+/5, abd 3-/5, add 5/5. ER 3-/5, IR 3-/5. Core strength: fair+. GAIT: pt. ambulates with K walker with good stability. he still has increased B knee valgus and hip IR positioning. Pt. is able to improve his upright posture with VCing, but tends to fall into is normal posture without VCing. Gait without AD. 6 MWT: 978feet with K walker Plan Plan Plan: I would like to continue with PT to work hip strengthening. He is independent in pool at this point in time. I would like to progress with more land exercises. Focus on hip strengthening and progressing to gym program. Goals Goals Goal 1:: LTG: Pt. to be I with HEP for gym exercises with hip strengthening focus. Goal Time Frame: 4-6 Weeks Goal Progress: Progressing Goal 2:: LTG: Pt. to have increased hip abd, ER, IR strength to 4/5 Bilaterally allowing for better control with gait. Goal Time Frame: 4-6 Weeks Goal Progress: Progressing Goal 3:: LTG: Pt. to be able to ambulate with K walker with better knee positioning. Goal Time Frame: 4-6 Weeks Goal Progress: Progressing Anticipated Interventions Re-Evaluation Ending Re-evaluation ending: Please do not hesitate to contact me at [phone] by phone or if you have questions or concerns regarding this new plan of care! Sincerely, SERENE ChapmanT
== END 2023-09-22 19:00 | disposition home or self-care (01) ==
LOC: PT 10:00
PROVIDERS: PCP Family Medicine
DX: G80.8 Other cerebral palsy (principal); Q68.2 Congenital deformity of knee
CPT/HCPCS: 97110; 97113; 97164; 97530

== ENCOUNTER → 2023-10-08 | Outpatient (CLI) | payer MEDICARE, MEDICAID, SELFPAY ==
[2023-10-08 11:30] LABS: Absolute Lymphocyte Count 1.97 X10^3/uL (0.83-4.51); Absolute Neutrophil Count 1.9 X10^3/uL (2.0-7.7); Basophil# 0.02 X10^3/uL; Basophil% 0.5 % (0-1); Eosinophils% 2.3 % (0-5); Hematocrit 39.6 % (40-54); Hemoglobin 12.8 g/dL (13.0-16.5); Lymphocyte # 1.97 X10^3/ul (0.83-4.51); Lymphocyte % 45.9 % (19-41); Mean Corp Hgb Conc 32.3 g/dL (32-36); Mean Corpuscular Hgb 28.6 pg (27.0-32.0); Mean Corpuscular Volume 88.4 fL (80-94); Mean Platelet Vol. 9.9 fl (6.2-12.0); Monocyte# 0.31 X10^3/uL; Monocyte% 7.2 % (0-10); NRBC Flagged by Analyzer 0 % (0-5); Neutrophil # 1.89 X10^3/uL (2.7-7.7); Neutrophil % 44.1 % (47-70); Platelet Count 222 K/mm3 (150-450); RBC Distribution Width CV 13.2 % (11.6-14.6); RBC Distribution Width SD 42.7 fl (35.1-43.9); Red Blood Count 4.48 M/mm3 (4.6-6.2); White Blood Count 4.3 K/mm3 (4.4-11.0)
[2023-10-08 12:00] LABS: AST(SGOT) 17 U/L (15-37); Alanine Aminotransfer ALT/SGPT 29 U/L (16-61); Albumin, Serum 4.1 g/dL (3.2-5.0); Alkaline Phosphatase 100 U/L (45-117); Anion Gap 5 (5-15); BUN 18 mg/dL (7-18); Calcium,Total 9.7 mg/dL (8.5-10.1); Chloride 104 mmol/L (98-107); EST Glomerular Filtration Rate 93 mL/min (>60); Est Glom Filt Rate - Afr Amer 113 mL/min (>60); Globulin 4.1 g/dL (2.2-4.2); Glucose 95 mg/dL (74-106); Magnesium 2.3 mg/dL (1.6-2.6); Potassium 3.8 mmol/L (3.5-5.1); Protein, Total 8.2 g/dL (6.4-8.2); Sodium Level 138 mmol/L (136-145)
== END | disposition home or self-care (01) ==
LOC: LAB 10:45
PROVIDERS: PCP Family Medicine; Referring Provider Family Medicine; Visit Provider Family Medicine
DX: D64.89 Other specified anemias (principal); K21.9 Gastro-esophageal reflux disease without esophagitis; E78.2 Mixed hyperlipidemia
CPT/HCPCS: 36415; 80053; 83735; 85025

== ENCOUNTER 2023-12-07 16:30 | Outpatient (RCR) | payer MEDICARE, MEDICAID, SELFPAY ==
--- NOTE | 2023-10-26 15:58 | HP.PTEVAL_ITS ---
Patient's Visit Information Visit Information Visit Information: NEO VARELA is a 28 year old M referred to Physical Therapy by Dr. Cruz Harry MD with a diagnosis of Acute L knee pain. Date of Evaluation: 10/20/23 Physical Therapist: Isac Brush DPT Visit Plan Frequency: 2x /Week Duration: 6 Weeks Plan: Start with vaso/ice. HS stretching and light [place] LE strengthening. Add in ROM (bike) and progressive strengthening to CKC as tolerated. Goal to get patient back to gym LE strengthening. Subjective Subjective: Pt. is here today for his initial evaluation with diagnosis of acute L knee pain. Pt. reports having increased L knee pain for about 10 days now. He reports no mech on injury, but did just go on vacation and had to walk many more steps than he was used to. He reports having increased swelling since. No pain at rest, but has increased pain with any weight bearing positions. Pain worsens with prolonged standing and with walking. PMH: CP, uses K walker for gait and balance. Pt. does walk a little at home without use of walker. 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 He reports being able to stand off and on, but still hurts to stand. Pt. is hopeful to reduce symptoms in order to get back to all recreational and work activities without limitations. Pain L knee: Pain Intensity (Out of 10): 4 Pain Intensity Range: 2 and 8 Objective Objective: POSTURE: Pt. has crouched pattern in stance. Pt. has increased B knee valgus positioning, worse without use of AD. PALPATION: Pt. has some mild edema at medial joint line of L knee ~1 inch difference. Non pitting. Pt. has some medial joint line tenderness and medial popliteal fossa as well as long medial HS insertion. NEURO: Normal sensation throughout BLEs. ROM: pt. has normal knee flexion, but does report a full feeling with end range flexion. extension is limited secondary to HS contracture. MMT: L knee: ext 24#, flexion 16# mild increase NW. R knee: ext 37#, flexion 23#. NO pain with R knee testing. GAIT: Pt. ambulates with a K walker, he has marked B knee valgus. He reports increased pain today, but positioning is baseline for him. Special Tests L Knee Brayan - Meniscus: Negative L Knee Apley - Meniscus: Negative L Knee Anterior Drawer - ACL: Negative L Knee Posterior Drawer - PCL: Negative L Knee Valgus - MCL: Negative L Knee Varus - LCL: Negative Balance/Special Test Scores Lower Extremity Functional Score: 34 Goals Goal 1:: LTG: Pt. to be I with HEP and gym program. Goal Time Frame: 4-6 Weeks Goal 2:: STG: pt. to have symmetrical edema between B knees. Goal Time Frame: 2-4 Weeks Goal 3:: LTG: Pt. to be able to ambulate with K walker without increase in L knee pain. Goal Time Frame: 4-6 Weeks Goal 4:: LTG: Pt. to have symmetrical strength between B HS and quads. Goal Time Frame: 4-6 Weeks Rehabilitation Potential Physical Therapy Diagnosis: Pt. has signs and symptoms consistent with acute L knee pain. Pt. did not have any positive signs of ligamentous injury, possible HS vs meniscal involvement. Neither were very positive with testing. Pt. would benefit from PT to reduce symptoms and get back to all walking and recreational activities with out limitations. Rehabilitation Potential: Excellent Anticipated Interventions Patient/Client Instruction: Educate patient on: Condition, Plan of Care, Risk Factors and Benefits of Fitness Program For the Purpose of:: To facilitate caregiver knowledge, To improve self management, To prevent re-injury, To improve ability to perform tasks related to life management and To improve tolerance to ADL's Therapeutic Exercise to Include: Strength training, Power training, Endurance training, Balance training, Flexibilty training, Passive ROM and Active ROM For the Purpose of:: To decrease pain, To decrease swelling/inflammation, To increase ROM, To improve nutrient delivery to tissue, To increase oxygenation perfusion, To improve muscle performance and motor function, To improve health of tissue, To decrease soft tissue restriction and To increase flexibility/ROM Cryotherapy (ice pack, ice massage): Yes Vasopneumatic device: Yes For the Purpose of:: To decrease pain, To decrease swelling/inflammation and To increase ROM Text: Thank you for the opportunity to evaluate your patient. For Medicare and Medicare HMO plans, please review the plan of care and approve it. It will need to be FAXED BACK to us at [phone] for Medicare purposes. For Medicare only, by signing this I certify the plan of care. Please let me know if there are questions or concerns regarding this plan of care. Physician Signature: Date:
--- NOTE | 2023-12-07 17:29 | HP.PTDCSUM_ITS ---
Discharge Summary D/C summary: It has been my pleasure to treat NEO VARELA referred by Dr. Cruz Harry MD, with the diagnosis of Acute L knee pain for a total of 9 visit(s). Discharge Date: 12/07/23 Please see the following information for a summary of their discharge status. Subjective Subjective: Pt. reports having no pain today. Pt. was able to go on vacation without issues. he is no longer having any L knee pain. Pt. repots being 90% better. Pain L knee: Pain Intensity (Out of 10): 0 Overall Improvement % Improvement: 90 Objective Objective/Function: pt. had not pain with all L knee testing, ligamentous testing was not painful. He has symmetrical ROM without increase in knee pain. He does have B HS contractures, but do not seem to bother him. SQUAT: no issues, does use UEs for stability. MMT: pt. has 5/5 strength without increase in symptoms of B knee musculature. GAIT: pt. ambulates with K walker with good tolerance. Pt. does have B knee valgus and hip IR, but this is normal for him. He is no longer having any knee pain and will be DC from PT at this point in [facility]. Goals Goal 1:: LTG: Pt. to be I with HEP and gym program. Goal Progress: Goal Met Goal 2:: STG: pt. to have symmetrical edema between B knees. Goal Progress: Goal Met Goal 3:: LTG: Pt. to be able to ambulate with K walker without increase in L knee pain. Goal Progress: Goal Met Goal 4:: LTG: Pt. to have symmetrical strength between B HS and quads. Goal Progress: Goal Met Plan Plan: Pt. to be DC to gym exercises at this point in time. D/C Information d/c sentence: If there are questions or concerns regarding this patient's physical therapy, please feel free to call me at [phone]. Thank you for the referral of this patient. Sincerely, Isac Alvaradoos, DPT Balance/Gait/Functional tests Balance/Special Test Scores Lower Extremity Functional Score: 60 Improvement % Improvement: 90
== END 2023-12-07 19:00 | disposition home or self-care (01) ==
LOC: PT 16:30
PROVIDERS: PCP Family Medicine; Referring Provider Family Medicine; Visit Provider Family Medicine
DX: M25.562 Pain in left knee (principal)
CPT/HCPCS: 97016; 97110; 97161; 97530

== ENCOUNTER 2024-03-07 12:00 | Outpatient (RCR) | payer MEDICARE, MEDICAID, SELFPAY ==
--- NOTE | 2024-01-23 16:29 | HP.PTEVAL_ITS ---
Patient's Visit Information Visit Information Visit Information: NEO VRAELA is a 28 year old M referred to Physical Therapy by GEOVANI Okeefe with a diagnosis of R knee pain. Date of Evaluation: 01/23/24 Physical Therapist: Isac Brush DPT Visit Plan Frequency: 2x /Week Duration: 6 Weeks Plan: 1) US/IASTIM to R patellar tendon, and quad tendon (3.3MHz, continous) 2) bike, ROM exercises 3) strengthening of quad and glutes to increase tolerance to all activities and walking. Subjective Subjective: Pt. is here today for his initial evaluation with diagnosis of R knee pain. Pt. reports having 6/10 pain currently. Pt. denies N/T in either LE. He reports falling on his knee at work and the following week he started having a lot of pain in his R knee. He reports having some swelling, but has improved. Pt. continues to have pain in his R knee since. It does walk him up while sleeping. Walking is the worst. He is meeting with Ortho tomorrow as well. Pt. is hopeful to reduce symptoms in order to get back to all work and recreational activities. After questioning he said that he did fall on his knee after taking a bad step. His symptoms started a few days after this. Pain R knee: Pain Intensity (Out of 10): 6 Pain Intensity Range: 3 Objective Objective: POSTURE: Pt. has very flexed posture with B knee valgus positioning, Crouched like pattern. Pt. stands with K walker for stability. Pt. wears B ankle AFOs for ankle stability. PALPATION: Pt. has tenderness at superior aspect of patella, at patellar tendon as well. Not much pain with palpation of medial or lateral joint lines. NEURO: Normal sensation noted. ROM: R knee: 0-8-122deg. Pt. reports pain at end range flexion and extension. Pt. has B HS contractures. MMT: RLE: knee: ext 47.1#, flexion 23.3#. LLE: ext 42.8#, flexion 21.3#. GAIT: Pt. ambulates with K walker. Pt. tends to ambulate with lack of TKE with marked B knee valgus and IR of B femurs. Pt. has difficulty correcting. Heavily uses UEs to assist. He did report sudden knee pain and felt like his knee was going to give out on him. Resolved after a few steps. Special Tests R Knee Brayan - Meniscus: Negative R Knee Apley - Meniscus: Negative R Knee Anterior Drawer - ACL: Negative R Knee Posterior Drawer - PCL: Negative R Knee Valgus - MCL: Negative R Knee Varus - LCL: Negative R Knee Patellar Apprehension - PFS: Negative Balance/Special Test Scores Lower Extremity Functional Score: 37 Goals Goal 1:: LTG: Pt. to be I with HEP. Goal Time Frame: 4-6 Weeks Goal 2:: LTG: Pt. to increased R knee ROM to 0-0-125deg without increase in R knee pain. Goal Time Frame: 4-6 Weeks Goal 3:: LTG: Pt. to ambulate with K walker for 900'+ without R knee pain. Goal Time Frame: 4-6 Weeks Goal 4:: LTG: Pt. to resume all gym exercises without R knee pain. Goal Time Frame: 4-6 Weeks Rehabilitation Potential Physical Therapy Diagnosis: Pt. has signs and symptoms consistent with R knee pain. Pt. has spasticity in her B LEs due to his CP. Pt. now has increased pain with knee flexion and extension, but more with WBing positioning. Pt. did not have any ligament laxity noted with testing. He did mention falling on his knee and having symptoms start after this. He reports no xrays at this point in time. Pt. would benefit from PT to address his knee issues and progress him back to walking without limitations. Rehabilitation Potential: Good Anticipated Interventions Patient/Client Instruction: Educate patient on: Condition, Plan of Care, Risk Factors and Benefits of Fitness Program For the Purpose of:: To improve decision making, To facilitate caregiver knowledge, To improve self management, To prevent re-injury, To improve ability to perform tasks related to life management and To improve tolerance to ADL's Therapeutic Exercise to Include: Strength training, Power training, Endurance training, Postural training, Flexibilty training, Gait and locomotor training, Passive ROM and Active ROM For the Purpose of:: To decrease pain, To decrease swelling/inflammation, To increase ROM, To improve nutrient delivery to tissue, To increase oxygenation perfusion, To improve muscle performance and motor function, To improve ability to perform ADL's, To increase tolerance to activity/condition/position, To improve performance and independence with ADL's, To decrease soft tissue restriction and To increase flexibility/ROM Cryotherapy (ice pack, ice massage): Yes Ultrasound (thermal/non thermal): Yes For the Purpose of:: To decrease pain, To decrease swelling/inflammation, To increase ROM and To improve nutrient delivery to tissue Text: Thank you for the opportunity to evaluate your patient. For Medicare and Medicare HMO plans, please review the plan of care and approve it. It will need to be FAXED BACK to us at [phone] for Medicare purposes. For Medicare only, by signing this I certify the plan of care. Please let me know if there are questions or concerns regarding this plan of care. Physician Signature: Date:
--- NOTE | 2024-03-07 12:15 | HP.PTDCSUM ---
Discharge Summary D/C summary: It has been my pleasure to treat NEO VARELA referred by GEOVANI Okeefe, with the diagnosis of R knee pain for a total of 12 visit(s). Discharge Date: 03/07/24 Please see the following information for a summary of their discharge status. Subjective Subjective: Pt. reports having a 6/10 pain in R knee. Pt. is to have an MRI next week then follow up with physician after that. Pain R knee: Pain Intensity (Out of 10): 6 Overall Improvement % Improvement: 0 Objective Objective/Function: MMT: R knee: ext 49.7#, flexion 27,7# L knee: ext 59.1#, flexion 40.8# ROM: L knee: 0-10-123deg R knee: 0-11-117deg. Pt. reports sharp pain at anterior knee with forced flexion walking with K walk 315feet but painful. his R knee did not give out in him today, but does report increased pain to 7/10 with walking. Pt. has B HS contractures due to his CP. His ROM is close to his normal. He does has increased pain with walking and with stairs. Going up the stairs is okay, but going down the stairs is painful. He is reporting that his R knee does give out on him at times. He reports this is happening every day. Goals Goal 1:: LTG: Pt. to be I with HEP. Goal Progress: Goal Met Goal 2:: LTG: Pt. to increased R knee ROM to 0-0-125deg without increase in R knee pain. Goal Progress: Progressing Goal 3:: LTG: Pt. to ambulate with K walker for 900'+ without R knee pain. Goal Progress: Progressing Goal 4:: LTG: Pt. to resume all gym exercises without R knee pain. Goal Progress: Not Progressing Plan Plan: Pt. to be DC from PT at this point in time. D/C Information Discharge Comments: Pt. will be DC from PT this date. He did not have much progress with PT. He is getting an MRI next week then to follow up with physician to determine best course of action. d/c sentence: If there are questions or concerns regarding this patient's physical therapy, please feel free to call me at [phone]. Thank you for the referral of this patient. Sincerely, Isac Brush, DPT Balance/Gait/Functional tests Balance/Special Test Scores Lower Extremity Functional Score: 37 Improvement % Improvement: 0
== END 2024-03-07 19:00 | disposition home or self-care (01) ==
LOC: PT 12:00
PROVIDERS: PCP Family Medicine; Referring Provider Clinical Nurse Specialist Adult Health; Visit Provider Clinical Nurse Specialist Adult Health
DX: G80.1 Spastic diplegic cerebral palsy (principal); M25.562 Pain in left knee
CPT/HCPCS: 97035; 97110; 97161; 97530